=== PATIENT | female | born 1970 | race Caucasian/White ===

== ENCOUNTER 2016-08-27 16:51 | Emergency (ER) | payer BC ==
[~2016-08-27] VITALS: Ht 152.4 cm; Wt 106.1 kg
--- NOTE | ~2016-08-27 | EKG ---
[place], [place] ELECTROCARDIOGRAM REPORT NAME: KRISTAL VAN UNIT #: [id number] ROOM: DOCTOR: YANNI ORNELAS MD BIRTHDATE: [birth year] DOS: 08/27/2016 TIME: 1707 hours. Normal sinus rhythm at 72 beats per minute. The tracing is normal. No previous tracing is available for comparison. YANNI ORNELAS MD CM:EKGRPT:ELECTROCARDIOGRAM REPORT [id number] YANNI ORNELAS MD
[~2016-08-27 16:51] MED LIST: ACETAMINOPHEN-H1 TA2 PO; ACYCLOVIR800 MG PO; ALLEGRA180 MG PO; ASPIRIN81 M1 PO; ATORVASTATIN CA20 M1 PO; ATORVASTATIN CA40 M1 PO; AUGMENTIN 875 M1 TAB PO; COZAAR50 M1 PO; FLAGYL500 MG PO; HYDROCHLOROTHIA25 M1 PO; LISINOPRIL10 MG PO; LOSARTAN POTASS25 M1 PO; MELOXICAM7.5 MG PO; MIDRIN 325 MG-11 CA1 PO; MOTRIN800 MG PO; NORCO 10-325 T1 EACH PO; PREDNISONE20 M1 PO; TIZANIDINE HCL4 MG PO; VICODIN 500 MG-1 TAB PO; ZOLPIDEM TART10 MG PO
[2016-08-27 17:24] LABS: BASO # 0.1 10*3/uL (0.0-0.1); BASO % 0.7 % (0.0-1.0); EOS # 0.1 10*3/uL (0.0-0.4); HEMATOCRIT 43.5 % (37.0-47.0); HEMOGLOBIN 15.5 g/dl (12.0-16.0); IG # 0.1 10*3/uL (0.0-0.1); LYMPH # 2.3 10*3/uL (1.3-4.4); LYMPH % 23.3 % (27.0-41.0); MEAN CELL VOLUME 82.9 fl (81.0-99.0); MEAN CORPUSCULAR HGB 29.5 pg (27.0-31.0); MEAN CORPUSCULAR HGB CONC 35.6 g/dl (33.0-37.0); MEAN PLATELET VOLUME 10.1 fl (9.6-12.3); MONO # 0.6 10*3/uL (0.1-1.0); MONO % 6.4 % (3.0-9.0); NEUT # 6.8 10*3/uL (2.3-7.9); NEUT % 68.1 % (47.0-73.0); PLATELET COUNT AUTOMATED 282 10*3/uL (130-400); RED BLOOD COUNT 5.25 10*6/uL (4.10-5.10); RED CELL DISTRI WIDTH 12.7 % (0-14.5)
[2016-08-27 17:35] LABS: PROTHROMBIN TIME 10.4 SECONDS (9.0-12.4)
[2016-08-27 17:53] LABS: ALKALINE PHOSPHATASE 100 U/L (45-117); BILIRUBIN, TOTAL 0.5 mg/dl (0.2-1.0); BUN 10 mg/dl (7-24); CARBON DIOXIDE 25 mmol/L (21-32); CHLORIDE 95 mmol/L (98-107); CPK 117 U/L (26-192); EST GLOM FILT AFRICAN AMERICAN > 60 ml/min; GLUCOSE 336 mg/dL (65-99); MAGNESIUM 1.9 mg/dL (1.5-2.1); POTASSIUM 3.1 mmol/L (3.5-5.1); SGOT/AST 24 IU/L (3-35); SGPT/ALT 33 U/L (12-78); SODIUM 137 mmol/L (136-145); TOTAL PROTEIN 7.3 gm/dL (6.4-8.2)
[2016-08-27 18:00] LABS: CKMB < 0.5 ng/ml (0.5-3.6); TROPONIN I < 0.015 ng/ml (<0.045)
== END 2016-08-27 18:23 | disposition home or self-care (01) ==
LOC: ED 16:51
PROVIDERS: Registered Nurse
DX: J09.X2 Influenza due to identified novel influenza A virus with other respiratory manifestations (principal); F17.200 Nicotine dependence, unspecified, uncomplicated; Z98.890 Other specified postprocedural states; Z90.49 Acquired absence of other specified parts of digestive tract; Z79.82 Long term (current) use of aspirin; Z79.899 Other long term (current) drug therapy; Z88.2 Allergy status to sulfonamides

== ENCOUNTER 2016-09-05 15:26 | Emergency (ER) | payer BC ==
[~2016-09-05] VITALS: Ht 152.4 cm; Wt 104.3 kg
[2016-09-05 16:03] LABS: BASO # 0.1 10*3/uL (0.0-0.1); BASO % 0.9 % (0.0-1.0); EOS # 0.2 10*3/uL (0.0-0.4); EOS % 2.4 % (1.0-4.0); HEMATOCRIT 42.4 % (37.0-47.0); HEMOGLOBIN 14.8 g/dl (12.0-16.0); LYMPH # 2.1 10*3/uL (1.3-4.4); LYMPH % 25.5 % (27.0-41.0); MEAN CELL VOLUME 84.5 fl (81.0-99.0); MEAN CORPUSCULAR HGB 29.5 pg (27.0-31.0); MEAN CORPUSCULAR HGB CONC 34.9 g/dl (33.0-37.0); MEAN PLATELET VOLUME 10.5 fl (9.6-12.3); MONO # 0.5 10*3/uL (0.1-1.0); MONO % 6.2 % (3.0-9.0); NEUT # 5.3 10*3/uL (2.3-7.9); NEUT % 64.5 % (47.0-73.0); PLATELET COUNT AUTOMATED 221 10*3/uL (130-400); RED BLOOD COUNT 5.02 10*6/uL (4.10-5.10); RED CELL DISTRI WIDTH 12.6 % (0-14.5); WHITE BLOOD COUNT 8.2 10*3/uL (4.8-10.8)
[2016-09-05 16:24] LABS: ALBUMIN 3.7 gm/dl (3.1-4.5); ALKALINE PHOSPHATASE 108 U/L (45-117); BILIRUBIN, TOTAL 0.5 mg/dl (0.2-1.0); BUN 10 mg/dl (7-24); CARBON DIOXIDE 28 mmol/L (21-32); CHLORIDE 97 mmol/L (98-107); EST GLOM FILT AFRICAN AMERICAN > 60 ml/min; GLUCOSE 436 mg/dL (65-99); POTASSIUM 3.7 mmol/L (3.5-5.1); SGOT/AST 19 IU/L (3-35); SGPT/ALT 29 U/L (12-78); SODIUM 135 mmol/L (136-145); TOTAL PROTEIN 6.7 gm/dL (6.4-8.2)
[2016-09-05 16:52] LABS: BILIRUBIN NEGATIVE (NEGATIVE); BLOOD TRACE-LYSED (NEGATIVE); CLARITY CLEAR (CLEAR); COLOR YELLOW (YELLOW); GLUCOSE 3+ (NEGATIVE); KETONE NEGATIVE (NEGATIVE); LEUKO ESTERASE NEGATIVE (NEGATIVE); NITRITE NEGATIVE (NEGATIVE); PH 6.5 (5.0-9.0); PROTEIN NEGATIVE (NEGATIVE); SPECIFIC GRAVITY <= 1.005 (1.005-1.030); UROBILINOGEN 0.2 E.U./dl (0.2-1.0)
[2016-09-05 17:20] LABS: BACTERIA 1+; URINE REFLEX COMMENT NO (NO); WBC 0-2 wbc/hpf (0-5)
[2016-09-05] MEDS ORDERED: METFORMIN500 MG PO (17:45)
== END 2016-09-05 17:47 | disposition home or self-care (01) ==
LOC: ED 15:26
PROVIDERS: Registered Nurse
DX: E11.9 Type 2 diabetes mellitus without complications (principal); F17.200 Nicotine dependence, unspecified, uncomplicated; Z88.2 Allergy status to sulfonamides; Z79.899 Other long term (current) drug therapy; Z79.82 Long term (current) use of aspirin

== ENCOUNTER → 2016-11-18 | Outpatient (CLI) | payer BC ==
[~2016-11-18] MED LIST changes: +METFORMIN500 MG PO
== END | disposition home or self-care (01) ==
LOC: CT 11-13 15:00
DX: N28.1 Cyst of kidney, acquired (principal); K57.30 Diverticulosis of large intestine without perforation or abscess without bleeding; I10 Essential (primary) hypertension

== ENCOUNTER 2017-04-29 13:21 | Emergency (ER) | payer BC ==
[~2017-04-29] VITALS: Ht 152.4 cm; Wt 113.4 kg
[2017-04-29] MEDS ORDERED: TRAMADOL HCL50 MG PO (15:39)
[2017-04-29] MEDS ORDERED: NAPROSYN500 MG PO (15:39)
== END 2017-04-29 15:59 | disposition home or self-care (01) ==
LOC: ED 13:21
DX: M25.562 Pain in left knee (principal); F17.200 Nicotine dependence, unspecified, uncomplicated; Z90.49 Acquired absence of other specified parts of digestive tract; Z98.890 Other specified postprocedural states; Z79.82 Long term (current) use of aspirin; Z79.899 Other long term (current) drug therapy; Z88.2 Allergy status to sulfonamides

== ENCOUNTER 2017-08-06 18:06 | Inpatient (IN) | payer BC ==
[~2017-08-06] VITALS: Ht 152.4 cm; Wt 116.2 kg
[2017-08-06] VITALS (7 sets, daily range): BP systolic 126–162; BP diastolic 56–78
[~2017-08-06 18:06] MED LIST changes: +NAPROSYN500 MG PO; +TRAMADOL HCL50 MG PO
[2017-08-06 18:22] LABS: BASO # 0.1 10*3/uL (0.0-0.1); BASO % 0.7 % (0.0-1.0); EOS # 0.1 10*3/uL (0.0-0.4); HEMATOCRIT 41.2 % (37.0-47.0); HEMOGLOBIN 13.7 g/dl (12.0-16.0); LYMPH # 2.6 10*3/uL (1.3-4.4); LYMPH % 28.4 % (27.0-41.0); MEAN CELL VOLUME 85.7 fl (81.0-99.0); MEAN CORPUSCULAR HGB 28.5 pg (27.0-31.0); MEAN CORPUSCULAR HGB CONC 33.3 g/dl (33.0-37.0); MEAN PLATELET VOLUME 10.2 fl (9.6-12.3); MONO # 0.7 10*3/uL (0.1-1.0); MONO % 7.3 % (3.0-9.0); NEUT # 5.7 10*3/uL (2.3-7.9); NEUT % 62.3 % (47.0-73.0); PLATELET COUNT AUTOMATED 288 10*3/uL (130-400); RED BLOOD COUNT 4.81 10*6/uL (4.10-5.10); RED CELL DISTRI WIDTH 13.2 % (0-14.5); WHITE BLOOD COUNT 9.1 10*3/uL (4.8-10.8)
[2017-08-06 18:32] LABS: ACT PARTIAL THROMBO TIME 22.4 SECONDS (20.8-31.5)
[2017-08-06 18:39] LABS: ALBUMIN 3.8 gm/dl (3.1-4.5); ALKALINE PHOSPHATASE 57 U/L (45-117); BUN 20 mg/dl (7-24); CHLORIDE 102 mmol/L (98-107); CREATININE 1.14 mg/dL (0.55-1.02); POTASSIUM 3.5 mmol/L (3.5-5.1); SGOT/AST 16 IU/L (3-35); SGPT/ALT 20 U/L (12-78); SODIUM 139 mmol/L (136-145); TOTAL PROTEIN 7.2 gm/dL (6.4-8.2)
[2017-08-06 18:40] LABS: TROPONIN I < 0.015 ng/ml (<0.045)
[2017-08-06] MEDS ORDERED: NEURONTIN600 MG PO (21:32)
[2017-08-06] MEDS ORDERED: VITAMIN D-32000 UNIT PO (21:33)
[2017-08-06] MEDS ORDERED: NOVOLOG MI100 UNIT/2 SQ ×2 (21:34→21:35)
[2017-08-06] MEDS ORDERED: FENOFIBRATE160 MG PO (21:53)
[2017-08-07 00:52] VITALS: BP 128/53
[2017-08-07] MEDS ORDERED: LIPITOR80 MG PO (01:16)
[2017-08-07 06:25] LABS: BASO # 0.1 10*3/uL (0.0-0.1); BASO % 0.9 % (0.0-1.0); EOS # 0.1 10*3/uL (0.0-0.4); EOS % 1.6 % (1.0-4.0); HEMATOCRIT 38.7 % (37.0-47.0); HEMOGLOBIN 13.1 g/dl (12.0-16.0); LYMPH # 2.3 10*3/uL (1.3-4.4); LYMPH % 31.6 % (27.0-41.0); MEAN CELL VOLUME 85.6 fl (81.0-99.0); MEAN CORPUSCULAR HGB CONC 33.9 g/dl (33.0-37.0); MEAN PLATELET VOLUME 10.2 fl (9.6-12.3); MONO # 0.6 10*3/uL (0.1-1.0); NEUT # 4.3 10*3/uL (2.3-7.9); NEUT % 57.6 % (47.0-73.0); PLATELET COUNT AUTOMATED 269 10*3/uL (130-400); RED BLOOD COUNT 4.52 10*6/uL (4.10-5.10); RED CELL DISTRI WIDTH 13.4 % (0-14.5); WHITE BLOOD COUNT 7.4 10*3/uL (4.8-10.8)
[2017-08-07 06:48] LABS: ALBUMIN 3.4 gm/dl (3.1-4.5); BUN 18 mg/dl (7-24); CHLORIDE 106 mmol/L (98-107); CHOLESTEROL 121 mg/dL (<200); CREATININE 1.05 mg/dL (0.55-1.02); PHOSPHOROUS 4.1 mg/dL (2.5-4.9); POTASSIUM 3.5 mmol/L (3.5-5.1); SGOT/AST 16 IU/L (3-35); SGPT/ALT 23 U/L (12-78); SODIUM 141 mmol/L (136-145); TOTAL PROTEIN 6.4 gm/dL (6.4-8.2); TRIGLYCERIDES 348 mg/dl (<150); VLDL CHOLESTEROL 70 mg/dL (6-40)
[2017-08-07 06:56] LABS: ALKALINE PHOSPHATASE 60 U/L (45-117); HDL CHOLESTEROL 20 mg/dl (40-60); LDL CHOLESTEROL 31 mg/dL (9-159)
[2017-08-07 08:00] VITALS: BP 123/63
[2017-08-07 08:10] LABS: VITAMIN D, 25-HYDROXY 27.5 ng/mL (30-100)
[2017-08-07 12:00] VITALS: BP 126/69
[2017-08-07] MEDS ORDERED: B12,B-12,B 12500 MC1 PO (13:16)
[2017-08-07] MEDS ORDERED: LOPRESSOR25 MG PO ×2 (15:14→15:46)
== END 2017-08-07 15:55 | disposition home or self-care (01) | DRG 313 ==
LOC: ED 18:06 → 4E 20:06 → EDHOLD 20:06 → 4E 20:25
PROVIDERS: Emergency Medicine; Internal Medicine
PROC: 4A02XM4 Measurement of Cardiac Total Activity, External Approach (ICD-10-PCS; principal; 2017-08-07)
PROC: 3E073KZ Introduction of Other Diagnostic Substance into Coronary Artery, Percutaneous Approach (ICD-10-PCS; principal; 2017-08-07)
DX: R07.9 Chest pain, unspecified (principal); N17.0 Acute kidney failure with tubular necrosis; Z68.43 Body mass index [BMI] 50.0-59.9, adult; E11.649 Type 2 diabetes mellitus with hypoglycemia without coma; E83.41 Hypermagnesemia; E66.01 Morbid (severe) obesity due to excess calories; E78.5 Hyperlipidemia, unspecified; F17.210 Nicotine dependence, cigarettes, uncomplicated; J45.909 Unspecified asthma, uncomplicated; I10 Essential (primary) hypertension; M19.90 Unspecified osteoarthritis, unspecified site; Z79.4 Long term (current) use of insulin; Z88.2 Allergy status to sulfonamides; Z79.899 Other long term (current) drug therapy; Z90.49 Acquired absence of other specified parts of digestive tract; Z82.49 Family history of ischemic heart disease and other diseases of the circulatory system; Z83.3 Family history of diabetes mellitus; Z82.3 Family history of stroke

== ENCOUNTER → 2017-08-27 | Outpatient (CLI) | payer BC ==
[~2017-08-27] MED LIST changes: +B12,B-12,B 12500 MC1 PO; +FENOFIBRATE160 MG PO; +LIPITOR80 MG PO; +LOPRESSOR25 MG PO; +NEURONTIN600 MG PO; +NOVOLOG MI100 UNIT/2 SQ; +VITAMIN D-32000 UNIT PO
[2017-08-27 16:53] LABS: HEMATOCRIT 40.6 % (37.0-47.0); HEMOGLOBIN 13.9 g/dl (12.0-16.0); MEAN CELL VOLUME 84.1 fl (81.0-99.0); MEAN CORPUSCULAR HGB 28.8 pg (27.0-31.0); MEAN CORPUSCULAR HGB CONC 34.2 g/dl (33.0-37.0); MEAN PLATELET VOLUME 10.3 fl (9.6-12.3); PLATELET COUNT AUTOMATED 357 10*3/uL (130-400); RED BLOOD COUNT 4.83 10*6/uL (4.10-5.10); RED CELL DISTRI WIDTH 13.1 % (0-14.5); WHITE BLOOD COUNT 20.5 10*3/uL (4.8-10.8)
[2017-08-27 17:06] LABS: CREATININE 1.32 mg/dL (0.55-1.02)
[2017-08-27 17:17] LABS: PLATELET SUFFICIENCY NORMAL (NORMAL); TOTAL CELLS COUNTED 100 #CELLS
== END | disposition home or self-care (01) ==
LOC: LAB 16:36
PROVIDERS: Internal Medicine Cardiovascular Disease
DX: R07.2 Precordial pain (principal); R94.39 Abnormal result of other cardiovascular function study; R89.9 Unspecified abnormal finding in specimens from other organs, systems and tissues

== ENCOUNTER → 2020-02-07 | Outpatient (CLI) | payer BC | END | disposition home or self-care (01) | LOC: MAMMO 12:32 | PROVIDERS: ATTEND Nurse Practitioner Primary Care | DX: R92.2 Inconclusive mammogram (principal); N63.11 Unspecified lump in the right breast, upper outer quadrant; N63.20 Unspecified lump in the left breast, unspecified quadrant; Z87.898 Personal history of other specified conditions ==

== ENCOUNTER → 2020-03-08 | Outpatient (CLI) | payer BC ==
[~2020-03-08] MED LIST changes: +AUGMENTIN 875875 MG PO; +BUDESONIDE-FO10.2 G1 INH; +GEMFIBROZIL600 MG PO; +NAPROXEN500 MG PO; +OZEMPIC1 MG/0.75 SQ; +PANTOPRAZOLE SO40 MG PO; +PROVENTIL HFA6.7 GM INH; +VENTOLIN 02.5 MG/3 M INH
== END | disposition home or self-care (01) ==
LOC: COVID19 04:56
PROVIDERS: ATTEND Nurse Practitioner Primary Care
DX: R31.9 Hematuria, unspecified (principal); R43.2 Parageusia; R11.0 Nausea; Z90.49 Acquired absence of other specified parts of digestive tract; Z20.828 Contact with and (suspected) exposure to other viral communicable diseases

== ENCOUNTER → 2020-04-06 | Outpatient (CLI) | payer BC | END | disposition home or self-care (01) | LOC: COVID19 08:54 | PROVIDERS: ATTEND Nurse Practitioner Primary Care | DX: Z20.828 Contact with and (suspected) exposure to other viral communicable diseases (principal) ==

== ENCOUNTER 2020-04-28 09:08 | Inpatient (IN) | payer BC ==
[~2020-04-28] VITALS: Ht 152.4 cm; Wt 102.7 kg
[~2020-04-28 09:08] MED LIST changes: -AUGMENTIN 875875 MG PO; -BUDESONIDE-FO10.2 G1 INH; -GEMFIBROZIL600 MG PO; -NAPROXEN500 MG PO; -OZEMPIC1 MG/0.75 SQ; -PANTOPRAZOLE SO40 MG PO; -PROVENTIL HFA6.7 GM INH; -VENTOLIN 02.5 MG/3 M INH
[2020-04-28 09:17] VITALS: BP 126/90
[2020-04-28 09:55] LABS: BASO # 0.1 10*3/uL (0.0-0.1); BASO % 0.5 % (0.0-1.0); EOS # 0.1 10*3/uL (0.0-0.4); EOS % 0.7 % (1.0-4.0); HEMATOCRIT 42.4 % (37.0-47.0); LYMPH # 1.5 10*3/uL (1.3-4.4); LYMPH % 11.3 % (27.0-41.0); MEAN CELL VOLUME 84.3 fl (81.0-99.0); MEAN CORPUSCULAR HGB 28.4 pg (27.0-31.0); MEAN CORPUSCULAR HGB CONC 33.7 g/dl (33.0-37.0); MEAN PLATELET VOLUME 10.1 fl (9.6-12.3); MONO # 0.8 10*3/uL (0.1-1.0); NEUT # 10.8 10*3/uL (2.3-7.9); NEUT % 80.9 % (47.0-73.0); PLATELET COUNT AUTOMATED 354 10*3/uL (130-400); RED BLOOD COUNT 5.03 10*6/uL (4.10-5.10); RED CELL DISTRI WIDTH 12.5 % (0-14.5); WHITE BLOOD COUNT 13.4 10*3/uL (4.8-10.8)
[2020-04-28 10:09] LABS: ALBUMIN 3.9 gm/dl (3.1-4.5); ALKALINE PHOSPHATASE 91 U/L (45-117); BUN 13 mg/dl (7-24); CHLORIDE 101 mmol/L (98-107); CREATININE 0.99 mg/dL (0.55-1.02); LIPASE 153 U/L (73-393); POTASSIUM 3.2 mmol/L (3.5-5.1); SGOT/AST 11 IU/L (3-35); SGPT/ALT 22 U/L (12-78); SODIUM 137 mmol/L (136-145); TOTAL PROTEIN 7.9 gm/dL (6.4-8.2)
--- NOTE | 2020-04-28 10:13 | NUR ---
PT IS RESTING IN BED W/O DISTRESS. NAUSEA HAS IMPROVED. PT HAS IS W/O NEEDS AT THIS TIME.
[2020-04-28 10:36] LABS: BILIRUBIN Negative (Negative); BLOOD Negative (Negative); CLARITY Clear (Clear); COLOR Yellow (Yellow); GLUCOSE Negative (Negative); KETONE Trace (Negative); LEUKO ESTERASE Trace (Negative); NITRITE Negative (Negative); PH 5.5 (4.5-8.0); SPECIFIC GRAVITY 1.025 (1.001-1.030)
[2020-04-28 10:55] LABS: BACTERIA 1+; HYALINE CAST 21-30
[2020-04-28 11:38] VITALS: BP 108/52
--- NOTE | 2020-04-28 11:42 | NUR ---
PT STATES "PAIN IS MUCH BETTER AFTER MEDS GIVEN" PT IS RESTING IN BED WITH SAFTEY PRECAUTIONS IN PLACE.
[2020-04-28 13:36] VITALS: BP 98/55
[2020-04-28 13:59] VITALS: BP 108/72
--- NOTE | 2020-04-28 15:04 | NUR ---
MSATime: 1359 A 49 year old FEMALE admitted to 5E under services of FREDDY GARZA DO. Pt. arrived via stretcher from ER. Chief complaint: ABDOMINAL PAIN/TENDERNESS, UTI SYMPTOMS. ALPHONSE COLLINS
[2020-04-28] MEDS ORDERED: OZEMPIC1 MG/0.75 SQ (15:10)
[2020-04-28] MEDS ORDERED: GEMFIBROZIL600 MG PO (15:11)
[2020-04-28] MEDS ORDERED: NAPROXEN500 MG PO (15:12)
[2020-04-28] MEDS ORDERED: PANTOPRAZOLE SO40 MG PO (15:15)
[2020-04-28] MEDS ORDERED: BUDESONIDE-FO10.2 G1 INH (15:22)
--- NOTE | 2020-04-28 15:26 | NUR ---
Requested and medicated with morphine iv per prn order for complaints of abdominal pain.
[2020-04-28 16:00] VITALS: BP 116/62
[2020-04-28] MEDS ORDERED: VENTOLIN 02.5 MG/3 M INH (16:23)
[2020-04-28] MEDS ORDERED: PROVENTIL HFA6.7 GM INH (16:24)
--- NOTE | 2020-04-28 16:26 | NUR ---
PRN IV MORPHINE EFFECTIVE, PER PATIENT; PAIN LEVEL HAS DECREASED TO A NOT-AWFUL LEVEL BUT IS STILL THERE, PER PATIENT. MEDICATED AT THIS TIME WITH PRN IV ZOFRAN FOR NAUSEA.
--- NOTE | 2020-04-28 17:17 | NUR ---
PRN IV ZOFRAN EFFECTIVE, PER PATIENT.
--- NOTE | 2020-04-28 18:41 | NUR ---
MEDICATED WITH PN PO NORCO FOR C/O ABDOMINAL PAIN.
--- NOTE | 2020-04-28 19:10 | NUR ---
REPORT RECEIVED. PT LYING IN BED. IVF INFUSING WITHOUT DIFFICULTY. CALL LIGHT IN REACH
--- NOTE | 2020-04-28 19:26 | NUR ---
MEDICATED WITH PRN IV MORPHINE FOR LEFT SIDE ABDOMINAL PAIN; PRN PO NORCO WAS MINIMALLY EFFECTIVE, PER PATIENT.
[2020-04-28 20:00] VITALS: BP 104/70
--- NOTE | 2020-04-28 21:00 | NUR ---
PT RESTING AT THIS TIME
--- NOTE | 2020-04-28 23:48 | NUR ---
MORPHINE GIVEN PER ORDER FOR PAIN. ZOFRAN GIVEN PER ORDER FOR NAUSEA. WILL MONITOR
[2020-04-29] VITALS: BP 99/56
--- NOTE | 2020-04-29 00:35 | NUR ---
MORPHINE AND ZOFRAN APPEAR EFFECTIVE, PT SLEEPING
[2020-04-29 04:27] VITALS: BP 104/62
--- NOTE | 2020-04-29 04:28 | NUR ---
MORPHINE GIVEN PER ORDER FOR 10/10 ABD PAIN.
--- NOTE | 2020-04-29 05:25 | NUR ---
MORPHINE APPEARS EFFECTIVE, PT ASLEEP
[2020-04-29 07:25] LABS: BASO # 0.1 10*3/uL (0.0-0.1); BASO % 0.4 % (0.0-1.0); EOS % 0.3 % (1.0-4.0); HEMATOCRIT 36.5 % (37.0-47.0); LYMPH # 1.2 10*3/uL (1.3-4.4); LYMPH % 8.3 % (27.0-41.0); MEAN CELL VOLUME 85.9 fl (81.0-99.0); MEAN CORPUSCULAR HGB 28.7 pg (27.0-31.0); MEAN CORPUSCULAR HGB CONC 33.4 g/dl (33.0-37.0); MEAN PLATELET VOLUME 10.3 fl (9.6-12.3); MONO # 0.7 10*3/uL (0.1-1.0); MONO % 4.6 % (3.0-9.0); NEUT # 12.3 10*3/uL (2.3-7.9); PLATELET COUNT AUTOMATED 269 10*3/uL (130-400); RED BLOOD COUNT 4.25 10*6/uL (4.10-5.10); RED CELL DISTRI WIDTH 12.9 % (0-14.5); WHITE BLOOD COUNT 14.3 10*3/uL (4.8-10.8)
[2020-04-29 07:34] LABS: BUN 11 mg/dl (7-24); CHLORIDE 109 mmol/L (98-107); CHOLESTEROL 101 mg/dL (<200); CREATININE 0.73 mg/dL (0.55-1.02); HDL CHOLESTEROL 28 mg/dl (40-60); LDL CHOLESTEROL 45 mg/dL (9-159); POTASSIUM 3.2 mmol/L (3.5-5.1); SODIUM 140 mmol/L (136-145); TRIGLYCERIDES 140 mg/dl (<150); VLDL CHOLESTEROL 28 mg/dL (6-40)
[2020-04-29 08:00] VITALS: BP 99/57
--- NOTE | 2020-04-29 09:56 | NUR ---
MEDICATED WITH PRN IV ZOFRAN AND MORPHINE FOR NAUSEA AND ABDOMINAL PAIN.
--- NOTE | 2020-04-29 10:45 | NUR ---
PRN IV MORPHINE AND ZOFRAN NOT VERY EFFECTIVE, PER PATIENT.
[2020-04-29 12:00] VITALS: BP 113/68
--- NOTE | 2020-04-29 12:45 | NUR ---
IV SITE TO LEFT ARM REDDENED/PAINFUL/EDEMATOUS. DISCONTINUED IV SITE AND APPLIED ICE PACK FOR PAIN. IV RESTARTED TO RIGHT ARM.
[2020-04-29 16:00] VITALS: BP 108/63
--- NOTE | 2020-04-29 16:13 | NUR ---
MEDICATED WITH PRN IV MORPHINE AND ZOFRAN FOR ABDOMINAL PAIN AND NAUSEA.
--- NOTE | 2020-04-29 17:00 | NUR ---
PRN IV ZOFRAN AND MORPHINE SOMEWHAT EFFECTIVE, PER PATIENT.
--- NOTE | 2020-04-29 19:10 | NUR ---
REPORT RECEIVED. PT LYING IN BED TALKING ON PHONE. NO COMPLAINTS. CALL LIGHT IN REACH
[2020-04-29 20:00] VITALS: BP 114/62
--- NOTE | 2020-04-29 20:23 | NUR ---
MORPHINE GIVEN PER ORDER FOR COMPLAINTS OF 10/10 LLQ PAIN. WILL MONITOR EFFECTIVENESS
--- NOTE | 2020-04-29 21:20 | NUR ---
MORPHINE APPEARS EFFECTIVE, PT LYING IN BED WITH EYES CLOSED. CALL LIGHT IN REACH
[2020-04-30] VITALS: BP 108/59
--- NOTE | 2020-04-30 01:26 | NUR ---
MORPHINE GIVEN PER ORDER FOR COMPLAINTS OF PAIN. ZOFRAN GIVEN PER ORDER FOR COMPLAINTS OF NAUSEA
--- NOTE | 2020-04-30 02:20 | NUR ---
MORPHINE AND ZOFRAN APPEAR EFFECTIVE, PT ASLEEP AT THIS TIME
--- NOTE | 2020-04-30 03:56 | NUR ---
24 HR chart check completed.
--- NOTE | 2020-04-30 04:00 | NUR ---
PT SLEEPING AT THIS TIME
--- NOTE | 2020-04-30 06:01 | NUR ---
MORPHINE GIVEN PER ORDER FOR ABDOMINAL PAIN. WILL MONITOR
--- NOTE | 2020-04-30 07:00 | NUR ---
MORPHINE EFFECTIVE PER PT
[2020-04-30 07:05] LABS: BASO % 0.4 % (0.0-1.0); EOS % 0.4 % (1.0-4.0); HEMATOCRIT 34.4 % (37.0-47.0); LYMPH # 0.9 10*3/uL (1.3-4.4); LYMPH % 8.5 % (27.0-41.0); MEAN CELL VOLUME 85.6 fl (81.0-99.0); MEAN CORPUSCULAR HGB 28.1 pg (27.0-31.0); MEAN CORPUSCULAR HGB CONC 32.8 g/dl (33.0-37.0); MEAN PLATELET VOLUME 10.2 fl (9.6-12.3); MONO # 0.5 10*3/uL (0.1-1.0); MONO % 4.5 % (3.0-9.0); NEUT # 9.5 10*3/uL (2.3-7.9); NEUT % 85.4 % (47.0-73.0); PLATELET COUNT AUTOMATED 273 10*3/uL (130-400); RED BLOOD COUNT 4.02 10*6/uL (4.10-5.10); RED CELL DISTRI WIDTH 12.7 % (0-14.5); WHITE BLOOD COUNT 11.1 10*3/uL (4.8-10.8)
[2020-04-30 07:28] LABS: BUN 10 mg/dl (7-24); CHLORIDE 106 mmol/L (98-107); CREATININE 0.76 mg/dL (0.55-1.02); POTASSIUM 3.1 mmol/L (3.5-5.1); SODIUM 139 mmol/L (136-145)
[2020-04-30 08:00] VITALS: BP 122/80
--- NOTE | 2020-04-30 08:20 | NUR ---
MEDICATED WITH PRN IV ZOFRAN FOR NAUSEA.
--- NOTE | 2020-04-30 08:30 | NUR ---
Survey Research Professor in to talk to patient this morning in her Room. Patient states that she Lives at Home with her . There are 7 steps in the home. Physician: Filemon Monique Pharmacy: [facility] Home health services: None Patient's level of ADLs: Independent, still works and Drives Patient has working utilities: Yes DME: None Follow-up physician's appointment after d/c: Per Hospitalist Nurse Director Does patient want to access PORTAL?: Declines Discharge plan discussed with Pt. At this time, Pt. plans on Returning Home at discharge with No Home Needs. MARIA ELENA KRAUSE LPN
--- NOTE | 2020-04-30 08:35 | NUR ---
MEDICATED WITH PRN PO NORCO FOR LEFT SIDE ABDOMINAL PAIN.
--- NOTE | 2020-04-30 09:20 | NUR ---
PRN NORCO AND ZOFRAN SOMEWHAT EFFECTIVE, PER PATIENT.
[2020-04-30 12:00] VITALS: BP 122/60
--- NOTE | 2020-04-30 14:44 | NUR ---
MEDICATED WITH PRN IV ZOFRAN AND MORPHINE FOR NAUSEA AND LEFT SIDE ABDOMINAL PAIN.
--- NOTE | 2020-04-30 15:30 | NUR ---
PRN IV ZOFRAN AND MORPHINE EFFECTIVE, PER PATIENT.
[2020-04-30 16:00] VITALS: BP 110/51
--- NOTE | 2020-04-30 16:22 | NUR ---
IV SITE TO RIGHT ARM REDDENED AND PAINFUL, IV SITE DISCONTINUED. AFTER MULTIPLE ATTEMPTS AT IV RESTART BY MULTIPLE RN'S, UNABLE TO OBTAIN IV ACCESS. 2ND OF 2 RUNS OF KCL 20MEQ NOT HUNG, PATIENT IS ALSO ORDERED IV ZOSYN. DR. WILSON NOTIFIED OF THIS. OBTAINED ORDER FOR MIDLINE INSERTION, MESSAGE SENT TO OR.
[2020-04-30 20:00] VITALS: BP 125/70
[2020-05-01] VITALS: BP 110/63
--- NOTE | 2020-05-01 05:05 | NUR ---
24 HR chart check completed.
--- NOTE | 2020-05-01 06:13 | NUR ---
PT REQUEST FOR PRN PAIN MEDICATION AND NAUSEA MEDICATION. MEDICATION GIVEN. WILL REASSESS.
[2020-05-01 06:54] LABS: BASO % 0.4 % (0.0-1.0); EOS # 0.1 10*3/uL (0.0-0.4); EOS % 0.5 % (1.0-4.0); HEMATOCRIT 33.6 % (37.0-47.0); LYMPH % 8.6 % (27.0-41.0); MEAN CELL VOLUME 85.3 fl (81.0-99.0); MEAN CORPUSCULAR HGB 28.7 pg (27.0-31.0); MEAN CORPUSCULAR HGB CONC 33.6 g/dl (33.0-37.0); MEAN PLATELET VOLUME 9.6 fl (9.6-12.3); MONO # 0.5 10*3/uL (0.1-1.0); MONO % 4.7 % (3.0-9.0); NEUT # 9.6 10*3/uL (2.3-7.9); NEUT % 84.8 % (47.0-73.0); PLATELET COUNT AUTOMATED 256 10*3/uL (130-400); RED BLOOD COUNT 3.94 10*6/uL (4.10-5.10); RED CELL DISTRI WIDTH 12.6 % (0-14.5); WHITE BLOOD COUNT 11.3 10*3/uL (4.8-10.8)
[2020-05-01 08:00] VITALS: BP 102/58
--- NOTE | 2020-05-01 10:45 | NUR ---
Nutritional Support Services Note: Pt remains on a clear liquid diet. Dx of diverticulitis of colon with perforation, UTI, DM, HTN, severe sepsis and obesity. Will follow for advancement of po intake. Margie Hernandez Rdn Ld
[2020-05-01 11:58] LABS: BUN 10 mg/dl (7-24); CHLORIDE 106 mmol/L (98-107); CREATININE 0.76 mg/dL (0.55-1.02); POTASSIUM 3.3 mmol/L (3.5-5.1); SODIUM 140 mmol/L (136-145)
[2020-05-01 12:00] VITALS: BP 128/70
--- NOTE | 2020-05-01 15:52 | NUR ---
DIET ADVANCED TO SOFT TODAY. IF TOLERATES WILL BE DCD IN AM PATIENT STATES DR. ERVIN TOLD HER.
[2020-05-01 16:00] VITALS: BP 111/56
--- NOTE | 2020-05-01 19:45 | NUR ---
PT SEEN AND ASSESSED. PT DENIES ANY CURRENT C/O AT THIS TIME. WILL CONT TO ASSESS.
[2020-05-01 20:00] VITALS: BP 117/63
[2020-05-01 22:09] VITALS: BP 138/45
--- NOTE | 2020-05-01 23:16 | NUR ---
PT REQUEST PRN PAIN MEDICATION FOR 8/10 PAIN TO LEFT SIDE AND FLANK. WILL REASSESS
[2020-05-02] VITALS: BP 129/68
--- NOTE | 2020-05-02 00:16 | NUR ---
PT RESTING IN BED WITH EYE CLOSED AND APPEARS TO BE ASLEEP AT THIS TIME. WILL CONT TO REASSESS
--- NOTE | 2020-05-02 02:29 | NUR ---
24 HR chart check completed.
[2020-05-02 06:51] LABS: BASO % 0.3 % (0.0-1.0); EOS # 0.1 10*3/uL (0.0-0.4); EOS % 0.5 % (1.0-4.0); HEMATOCRIT 32.5 % (37.0-47.0); LYMPH % 7.8 % (27.0-41.0); MEAN CELL VOLUME 84.4 fl (81.0-99.0); MEAN CORPUSCULAR HGB 28.1 pg (27.0-31.0); MEAN CORPUSCULAR HGB CONC 33.2 g/dl (33.0-37.0); MEAN PLATELET VOLUME 9.6 fl (9.6-12.3); MONO # 0.7 10*3/uL (0.1-1.0); MONO % 5.3 % (3.0-9.0); NEUT # 10.4 10*3/uL (2.3-7.9); NEUT % 85.4 % (47.0-73.0); PLATELET COUNT AUTOMATED 295 10*3/uL (130-400); RED BLOOD COUNT 3.85 10*6/uL (4.10-5.10); RED CELL DISTRI WIDTH 12.6 % (0-14.5); WHITE BLOOD COUNT 12.2 10*3/uL (4.8-10.8)
--- NOTE | 2020-05-02 07:00 | NUR ---
REPORT RECEIVED. PT LYING IN BED. NO COMPLAINTS. CALL LIGHT IN REACH
[2020-05-02 07:04] LABS: BUN 7 mg/dl (7-24); CHLORIDE 106 mmol/L (98-107); CREATININE 0.73 mg/dL (0.55-1.02); POTASSIUM 3.2 mmol/L (3.5-5.1); SODIUM 140 mmol/L (136-145)
[2020-05-02 08:00] VITALS: BP 99/58
--- NOTE | 2020-05-02 09:00 | NUR ---
IN TO SEE PT. NO COMPLAINTS. MEDICATIONS GIVEN. CALL LIGHT IN REACH
--- NOTE | 2020-05-02 12:00 | NUR ---
IN TO SEE PATIENT. VOICES NO COMPLAIINTS. CALL LIGHT IN REACH
[2020-05-02] MEDS ORDERED: AUGMENTIN 875875 MG PO (13:55)
--- NOTE | 2020-05-02 14:33 | NUR ---
Discharge instructions reviewed with patient/family. Patient receptive and verbalizes understanding. Follow-up care arranged. Written instructions given to patient/family. BARBER HOGAN
== END 2020-05-02 14:33 | disposition home or self-care (01) | DRG 872 ==
LOC: ED 09:08 → 5E 13:08 → EDHOLD 13:08 → 5E 13:30
PROVIDERS: Internal Medicine; Physician Assistant; Student in an Organized Health Care Education/Training Program; ADMIT Family Medicine; ATTEND Family Medicine
DX: A41.9 Sepsis, unspecified organism (principal); K57.20 Diverticulitis of large intestine with perforation and abscess without bleeding; N39.0 Urinary tract infection, site not specified; E87.2 Acidosis; Z68.42 Body mass index [BMI] 45.0-49.9, adult; R65.20 Severe sepsis without septic shock; E11.65 Type 2 diabetes mellitus with hyperglycemia; E66.01 Morbid (severe) obesity due to excess calories; E87.6 Hypokalemia; F17.210 Nicotine dependence, cigarettes, uncomplicated; Z71.6 Tobacco abuse counseling; Z88.2 Allergy status to sulfonamides; Z82.49 Family history of ischemic heart disease and other diseases of the circulatory system; Z83.3 Family history of diabetes mellitus; Z81.1 Family history of alcohol abuse and dependence; Z82.3 Family history of stroke; Z84.1 Family history of disorders of kidney and ureter; Z83.49 Family history of other endocrine, nutritional and metabolic diseases

== ENCOUNTER → 2020-07-02 | Outpatient (CLI) | payer BC ==
[~2020-07-02] MED LIST changes: +AUGMENTIN 875875 MG PO; +BUDESONIDE-FO10.2 G1 INH; +CIPRO500 MG PO; +COZAAR25 M1 PO; +FIBER625 MG PO; +GEMFIBROZIL600 MG PO; +JANUVIA100 MG PO; +LEXAPRO5 M1 PO; +NAPROXEN500 MG PO; +OZEMPIC1 MG/0.75 SQ; +PANTOPRAZOLE SO40 MG PO; +PROVENTIL HFA6.7 GM INH; +STOOL SOFTENER100 M3 PO; +SYMB160 INH; +TRAZODONE50 MG PO; +VENTOLIN 02.5 MG/3 M INH
== END | disposition home or self-care (01) ==
LOC: COVID19 09:12
PROVIDERS: ATTEND Nurse Practitioner
DX: Z01.812 Encounter for preprocedural laboratory examination (principal); Z20.822 Contact with and (suspected) exposure to COVID-19

== ENCOUNTER → 2020-07-05 | Day surgery (SDC) | payer BC ==
[~2020-07-05] VITALS: Ht 152.4 cm; Wt 99.8 kg
[2020-07-05 07:45] VITALS: BP 132/60
[2020-07-05 08:32] VITALS: BP 110/35
[2020-07-05 08:45] VITALS: BP 104/54
[2020-07-05 09:02] VITALS: BP 108/64
== END ==
LOC: SDC 07-03 08:00
PROVIDERS: ATTEND Surgery
DX: R10.32 Left lower quadrant pain (principal); K29.50 Unspecified chronic gastritis without bleeding; K57.30 Diverticulosis of large intestine without perforation or abscess without bleeding; K57.32 Diverticulitis of large intestine without perforation or abscess without bleeding; G25.81 Restless legs syndrome; I10 Essential (primary) hypertension; K21.9 Gastro-esophageal reflux disease without esophagitis; F17.210 Nicotine dependence, cigarettes, uncomplicated; F41.9 Anxiety disorder, unspecified; F32.9 Major depressive disorder, single episode, unspecified; E78.00 Pure hypercholesterolemia, unspecified; M19.90 Unspecified osteoarthritis, unspecified site; J45.909 Unspecified asthma, uncomplicated; Z90.49 Acquired absence of other specified parts of digestive tract; Z98.890 Other specified postprocedural states; Z79.899 Other long term (current) drug therapy

== ENCOUNTER → 2020-07-06 | Outpatient (CLI) | payer BC | END | disposition home or self-care (01) | LOC: RESCLI 01:13 | PROVIDERS: ATTEND Internal Medicine | DX: Z76.89 Persons encountering health services in other specified circumstances (principal); Z11.59 Encounter for screening for other viral diseases; J45.41 Moderate persistent asthma with (acute) exacerbation; R11.0 Nausea; K57.92 Diverticulitis of intestine, part unspecified, without perforation or abscess without bleeding; E11.65 Type 2 diabetes mellitus with hyperglycemia; E78.5 Hyperlipidemia, unspecified; I25.10 Atherosclerotic heart disease of native coronary artery without angina pectoris; E55.9 Vitamin D deficiency, unspecified; K21.00 Gastro-esophageal reflux disease with esophagitis, without bleeding; I10 Essential (primary) hypertension; G47.00 Insomnia, unspecified; G89.29 Other chronic pain; J45.909 Unspecified asthma, uncomplicated; M54.9 Dorsalgia, unspecified; E78.1 Pure hyperglyceridemia; F17.210 Nicotine dependence, cigarettes, uncomplicated; F39 Unspecified mood [affective] disorder; Z79.4 Long term (current) use of insulin; Z79.82 Long term (current) use of aspirin; Z79.899 Other long term (current) drug therapy; Z88.8 Allergy status to other drugs, medicaments and biological substances; Z90.49 Acquired absence of other specified parts of digestive tract; Z98.890 Other specified postprocedural states ==

== ENCOUNTER 2020-08-20 13:44 | Observation (INO) | payer BC ==
[~2020-08-20] VITALS: Ht 152.4 cm; Wt 96.6 kg
[~2020-08-20 13:44] MED LIST changes: -CIPRO500 MG PO; -COZAAR25 M1 PO; -JANUVIA100 MG PO
[2020-08-20 13:52] VITALS: BP 114/57
[2020-08-20 15:32] LABS: BASO # 0.1 10*3/uL (0.0-0.1); BASO % 0.6 % (0.0-1.0); EOS # 0.1 10*3/uL (0.0-0.4); EOS % 0.9 % (1.0-4.0); HEMATOCRIT 36.7 % (37.0-47.0); LYMPH # 2.4 10*3/uL (1.3-4.4); LYMPH % 18.7 % (27.0-41.0); MEAN CELL VOLUME 80.1 fl (81.0-99.0); MEAN CORPUSCULAR HGB 25.8 pg (27.0-31.0); MEAN CORPUSCULAR HGB CONC 32.2 g/dl (33.0-37.0); MEAN PLATELET VOLUME 8.8 fl (9.6-12.3); MONO # 0.7 10*3/uL (0.1-1.0); MONO % 5.7 % (3.0-9.0); NEUT # 9.2 10*3/uL (2.3-7.9); NEUT % 72.7 % (47.0-73.0); PLATELET COUNT AUTOMATED 445 10*3/uL (130-400); RED BLOOD COUNT 4.58 10*6/uL (4.10-5.10); RED CELL DISTRI WIDTH 13.7 % (0-14.5); WHITE BLOOD COUNT 12.6 10*3/uL (4.8-10.8)
[2020-08-20 15:44] LABS: INTERNATIONAL NORM RATIO 1.1 (2.0-3.5)
[2020-08-20 15:50] LABS: ALBUMIN 3.3 gm/dl (3.1-4.5); ALKALINE PHOSPHATASE 117 U/L (45-117); BUN 9 mg/dl (7-24); CHLORIDE 99 mmol/L (98-107); CREATININE 0.95 mg/dL (0.55-1.02); LIPASE 156 U/L (73-393); POTASSIUM 2.6 mmol/L (3.5-5.1); SGOT/AST 6 IU/L (3-35); SGPT/ALT 9 U/L (12-78); SODIUM 135 mmol/L (136-145); TOTAL PROTEIN 8.2 gm/dL (6.4-8.2)
[2020-08-20 15:52] LABS: TROPONIN I < 0.015 ng/ml (<0.045)
[2020-08-20 16:42] LABS: BILIRUBIN Negative (Negative); BLOOD 3+ (Negative); CLARITY Turbid (Clear); COLOR Yellow (Yellow); GLUCOSE Negative (Negative); KETONE Negative (Negative); LEUKO ESTERASE 3+ (Negative); NITRITE Positive (Negative); SPECIFIC GRAVITY 1.015 (1.001-1.030)
[2020-08-20 16:47] LABS: WBC TNTC wbc/hpf (0-5)
[2020-08-20 17:58] VITALS: BP 105/58
[2020-08-20] MEDS ORDERED: JANUVIA100 MG PO (19:57)
[2020-08-20 21:05] VITALS: BP 94/52
[2020-08-20 23:30] VITALS: BP 102/66
[2020-08-21 05:28] VITALS: BP 104/68
[2020-08-21 06:11] LABS: ALBUMIN 2.7 gm/dl (3.1-4.5); BASO # 0.1 10*3/uL (0.0-0.1); BASO % 0.8 % (0.0-1.0); BUN 9 mg/dl (7-24); CHLORIDE 105 mmol/L (98-107); CHOLESTEROL 109 mg/dL (<200); CREATININE 0.85 mg/dL (0.55-1.02); EOS # 0.1 10*3/uL (0.0-0.4); EOS % 1.1 % (1.0-4.0); HEMATOCRIT 35.1 % (37.0-47.0); LYMPH # 2.1 10*3/uL (1.3-4.4); LYMPH % 25.7 % (27.0-41.0); MEAN CELL VOLUME 82.2 fl (81.0-99.0); MEAN CORPUSCULAR HGB 25.5 pg (27.0-31.0); MEAN CORPUSCULAR HGB CONC 31.1 g/dl (33.0-37.0); MONO # 0.6 10*3/uL (0.1-1.0); MONO % 6.7 % (3.0-9.0); NEUT # 5.3 10*3/uL (2.3-7.9); NEUT % 64.6 % (47.0-73.0); PLATELET COUNT AUTOMATED 383 10*3/uL (130-400); RED BLOOD COUNT 4.27 10*6/uL (4.10-5.10); SGOT/AST 5 IU/L (3-35); SGPT/ALT 8 U/L (12-78); SODIUM 141 mmol/L (136-145); TRIGLYCERIDES 218 mg/dl (<150); VLDL CHOLESTEROL 44 mg/dL (6-40); WHITE BLOOD COUNT 8.2 10*3/uL (4.8-10.8)
[2020-08-21 06:14] LABS: ACT PARTIAL THROMBO TIME 25.5 SECONDS (20.0-32.1); INTERNATIONAL NORM RATIO 1.1 (2.0-3.5)
[2020-08-21 06:18] LABS: ALKALINE PHOSPHATASE 93 U/L (45-117); FREE T4 1.05 ng/dl (0.76-1.46); HDL CHOLESTEROL 23 mg/dl (40-60); LDL CHOLESTEROL 42 mg/dL (9-159); TOTAL PROTEIN 6.9 gm/dL (6.4-8.2)
[2020-08-21 07:42] LABS: VITAMIN D, 25-HYDROXY 39.5 ng/mL (30-100)
[2020-08-21 10:12] VITALS: BP 124/47
[2020-08-21 12:00] VITALS: BP 135/64
[2020-08-21 16:00] VITALS: BP 112/61
[2020-08-21 20:36] VITALS: BP 105/50
[2020-08-22] VITALS: BP 103/51
[2020-08-22 06:11] LABS: BUN 10 mg/dl (7-24); CHLORIDE 107 mmol/L (98-107); CREATININE 0.72 mg/dL (0.55-1.02); POTASSIUM 3.8 mmol/L (3.5-5.1); SODIUM 141 mmol/L (136-145)
[2020-08-22 06:23] LABS: BASO % 0.6 % (0.0-1.0); EOS # 0.1 10*3/uL (0.0-0.4); HEMATOCRIT 32.4 % (37.0-47.0); LYMPH # 1.7 10*3/uL (1.3-4.4); LYMPH % 24.2 % (27.0-41.0); MEAN CELL VOLUME 83.3 fl (81.0-99.0); MEAN CORPUSCULAR HGB 25.4 pg (27.0-31.0); MEAN CORPUSCULAR HGB CONC 30.6 g/dl (33.0-37.0); MEAN PLATELET VOLUME 8.9 fl (9.6-12.3); MONO # 0.5 10*3/uL (0.1-1.0); MONO % 6.7 % (3.0-9.0); NEUT # 4.7 10*3/uL (2.3-7.9); NEUT % 66.8 % (47.0-73.0); PLATELET COUNT AUTOMATED 390 10*3/uL (130-400); RED BLOOD COUNT 3.89 10*6/uL (4.10-5.10); RED CELL DISTRI WIDTH 13.9 % (0-14.5)
[2020-08-22 07:30] VITALS: BP 110/65
[2020-08-22] MEDS ORDERED: LOPRESSOR25 MG PO (09:48)
[2020-08-22] MEDS ORDERED: CIPRO500 MG PO ×2 (09:48)
[2020-08-22] MEDS ORDERED: COZAAR25 M1 PO ×2 (09:48)
== END 2020-08-22 11:30 | disposition home or self-care (01) ==
LOC: ED 13:44 → EDHOLD 16:49 → 4E 08-21 09:17
PROVIDERS: Family Medicine; Hospitalist; Physician Assistant; ADMIT Internal Medicine; ATTEND Internal Medicine
DX: R55 Syncope and collapse (principal); E87.6 Hypokalemia; N39.0 Urinary tract infection, site not specified; D64.9 Anemia, unspecified; D72.829 Elevated white blood cell count, unspecified; D47.3 Essential (hemorrhagic) thrombocythemia; E87.1 Hypo-osmolality and hyponatremia; R79.82 Elevated C-reactive protein (CRP); E11.65 Type 2 diabetes mellitus with hyperglycemia; M19.90 Unspecified osteoarthritis, unspecified site; I10 Essential (primary) hypertension; G25.81 Restless legs syndrome; E78.5 Hyperlipidemia, unspecified; J45.909 Unspecified asthma, uncomplicated; F17.210 Nicotine dependence, cigarettes, uncomplicated; Z90.49 Acquired absence of other specified parts of digestive tract; Z88.2 Allergy status to sulfonamides

== ENCOUNTER 2020-09-05 11:40 | Inpatient (IN) | payer BC ==
[~2020-09-05] VITALS: Ht 152.4 cm; Wt 99.8 kg
[~2020-09-05 11:40] MED LIST changes: +CIPRO500 MG PO; +COZAAR25 M1 PO; +JANUVIA100 MG PO
[2020-09-05 11:58] VITALS: BP 154/66
[2020-09-05 12:32] LABS: BILIRUBIN Negative (Negative); BLOOD 1+ (Negative); CLARITY Turbid (Clear); COLOR Yellow (Yellow); GLUCOSE 1+ (Negative); KETONE Trace (Negative); LEUKO ESTERASE 3+ (Negative); NITRITE Negative (Negative); SPECIFIC GRAVITY 1.025 (1.001-1.030)
[2020-09-05 12:49] LABS: EPITHELIAL CELLS 21-30; RBC 21-30 rbc/hpf (0-2); WBC TNTC wbc/hpf (0-5)
[2020-09-05 12:50] LABS: BACTERIA 3+
[2020-09-05 13:00] LABS: BASO % 0.5 % (0.0-1.0); EOS # 0.1 10*3/uL (0.0-0.4); EOS % 0.9 % (1.0-4.0); HEMATOCRIT 31.2 % (37.0-47.0); LYMPH # 1.4 10*3/uL (1.3-4.4); LYMPH % 17.5 % (27.0-41.0); MEAN CELL VOLUME 83.6 fl (81.0-99.0); MEAN CORPUSCULAR HGB 25.7 pg (27.0-31.0); MEAN CORPUSCULAR HGB CONC 30.8 g/dl (33.0-37.0); MEAN PLATELET VOLUME 8.1 fl (9.6-12.3); MONO # 0.5 10*3/uL (0.1-1.0); MONO % 5.8 % (3.0-9.0); NEUT % 74.6 % (47.0-73.0); PLATELET COUNT AUTOMATED 363 10*3/uL (130-400); RED BLOOD COUNT 3.73 10*6/uL (4.10-5.10); RED CELL DISTRI WIDTH 15.2 % (0-14.5); WHITE BLOOD COUNT 8.1 10*3/uL (4.8-10.8)
[2020-09-05 13:09] LABS: INTERNATIONAL NORM RATIO 1.2 (2.0-3.5)
[2020-09-05 13:17] LABS: ALBUMIN 2.7 gm/dl (3.1-4.5); ALKALINE PHOSPHATASE 92 U/L (45-117); BUN 12 mg/dl (7-24); CHLORIDE 108 mmol/L (98-107); CREATININE 0.91 mg/dL (0.55-1.02); LIPASE 98 U/L (73-393); POTASSIUM 3.4 mmol/L (3.5-5.1); SGOT/AST 4 IU/L (3-35); SGPT/ALT 9 U/L (12-78); SODIUM 141 mmol/L (136-145); TOTAL PROTEIN 6.5 gm/dL (6.4-8.2)
[2020-09-05 13:19] LABS: TROPONIN I < 0.015 ng/ml (<0.045)
[2020-09-05 19:50] VITALS: BP 130/56
[2020-09-05 20:30] VITALS: BP 146/63
[2020-09-06] VITALS: BP 128/58
[2020-09-06 06:24] LABS: BASO # 0.1 10*3/uL (0.0-0.1); BASO % 0.8 % (0.0-1.0); EOS # 0.1 10*3/uL (0.0-0.4); EOS % 1.1 % (1.0-4.0); HEMATOCRIT 30.7 % (37.0-47.0); LYMPH # 1.6 10*3/uL (1.3-4.4); LYMPH % 24.9 % (27.0-41.0); MEAN CELL VOLUME 83.4 fl (81.0-99.0); MEAN CORPUSCULAR HGB 25.3 pg (27.0-31.0); MEAN CORPUSCULAR HGB CONC 30.3 g/dl (33.0-37.0); MEAN PLATELET VOLUME 8.3 fl (9.6-12.3); MONO # 0.5 10*3/uL (0.1-1.0); MONO % 7.2 % (3.0-9.0); NEUT # 4.3 10*3/uL (2.3-7.9); NEUT % 65.4 % (47.0-73.0); PLATELET COUNT AUTOMATED 379 10*3/uL (130-400); RED BLOOD COUNT 3.68 10*6/uL (4.10-5.10); RED CELL DISTRI WIDTH 15.4 % (0-14.5); WHITE BLOOD COUNT 6.6 10*3/uL (4.8-10.8)
[2020-09-06 06:31] LABS: ALBUMIN 2.7 gm/dl (3.1-4.5); ALKALINE PHOSPHATASE 85 U/L (45-117); BUN 12 mg/dl (7-24); CHLORIDE 110 mmol/L (98-107); CREATININE 0.81 mg/dL (0.55-1.02); POTASSIUM 3.3 mmol/L (3.5-5.1); SGOT/AST 6 IU/L (3-35); SGPT/ALT 9 U/L (12-78); SODIUM 144 mmol/L (136-145); TOTAL PROTEIN 6.7 gm/dL (6.4-8.2)
[2020-09-06 08:00] VITALS: BP 128/68
[2020-09-06 12:00] VITALS: BP 102/72
[2020-09-06 16:00] VITALS: BP 127/66
[2020-09-06 20:00] VITALS: BP 140/51
[2020-09-07] VITALS: BP 151/63
[2020-09-07 06:38] LABS: BASO # 0.1 10*3/uL (0.0-0.1); BASO % 0.8 % (0.0-1.0); EOS # 0.1 10*3/uL (0.0-0.4); EOS % 1.2 % (1.0-4.0); HEMATOCRIT 30.5 % (37.0-47.0); LYMPH # 1.6 10*3/uL (1.3-4.4); LYMPH % 22.2 % (27.0-41.0); MEAN CELL VOLUME 83.1 fl (81.0-99.0); MEAN CORPUSCULAR HGB 25.3 pg (27.0-31.0); MEAN CORPUSCULAR HGB CONC 30.5 g/dl (33.0-37.0); MEAN PLATELET VOLUME 8.4 fl (9.6-12.3); MONO # 0.4 10*3/uL (0.1-1.0); NEUT # 5.1 10*3/uL (2.3-7.9); NEUT % 69.1 % (47.0-73.0); PLATELET COUNT AUTOMATED 385 10*3/uL (130-400); RED BLOOD COUNT 3.67 10*6/uL (4.10-5.10); RED CELL DISTRI WIDTH 15.4 % (0-14.5); WHITE BLOOD COUNT 7.4 10*3/uL (4.8-10.8)
[2020-09-07 06:58] LABS: BUN 14 mg/dl (7-24); CHLORIDE 111 mmol/L (98-107); CREATININE 0.87 mg/dL (0.55-1.02); POTASSIUM 3.4 mmol/L (3.5-5.1); SODIUM 141 mmol/L (136-145)
[2020-09-07 08:00] VITALS: BP 154/77
[2020-09-07 12:00] VITALS: BP 148/82
[2020-09-07 16:00] VITALS: BP 152/78
[2020-09-07 20:00] VITALS: BP 159/60
[2020-09-08] VITALS: BP 138/72
[2020-09-08 06:45] LABS: BASO % 0.5 % (0.0-1.0); EOS # 0.1 10*3/uL (0.0-0.4); EOS % 1.5 % (1.0-4.0); HEMATOCRIT 30.2 % (37.0-47.0); LYMPH # 1.4 10*3/uL (1.3-4.4); LYMPH % 19.2 % (27.0-41.0); MEAN CELL VOLUME 85.1 fl (81.0-99.0); MEAN CORPUSCULAR HGB 25.4 pg (27.0-31.0); MEAN CORPUSCULAR HGB CONC 29.8 g/dl (33.0-37.0); MEAN PLATELET VOLUME 8.3 fl (9.6-12.3); MONO # 0.4 10*3/uL (0.1-1.0); NEUT # 5.3 10*3/uL (2.3-7.9); NEUT % 72.3 % (47.0-73.0); PLATELET COUNT AUTOMATED 332 10*3/uL (130-400); RED BLOOD COUNT 3.55 10*6/uL (4.10-5.10); RED CELL DISTRI WIDTH 15.5 % (0-14.5); WHITE BLOOD COUNT 7.3 10*3/uL (4.8-10.8)
[2020-09-08 07:06] LABS: BUN 13 mg/dl (7-24); CHLORIDE 109 mmol/L (98-107); CREATININE 0.83 mg/dL (0.55-1.02); POTASSIUM 3.7 mmol/L (3.5-5.1); SODIUM 142 mmol/L (136-145)
[2020-09-08 08:00] VITALS: BP 135/72
[2020-09-08 12:00] VITALS: BP 152/72
[2020-09-08 16:00] VITALS: BP 170/65
[2020-09-08 20:00] VITALS: BP 155/70
[2020-09-09 08:19] VITALS: BP 127/65
[2020-09-09 11:31] VITALS: BP 147/57
[2020-09-09 15:33] VITALS: BP 144/57
[2020-09-09 20:00] VITALS: BP 160/68
[2020-09-10] VITALS (13 sets, daily range): BP systolic 117–177; BP diastolic 54–88
[2020-09-10 08:43] LABS: ACT PARTIAL THROMBO TIME 27.4 SECONDS (20.0-32.1); INTERNATIONAL NORM RATIO 1.2 (2.0-3.5)
[2020-09-11] VITALS: BP 147/61; BP 169/68
[2020-09-11 06:20] LABS: BASO # 0.1 10*3/uL (0.0-0.1); BASO % 0.9 % (0.0-1.0); EOS # 0.2 10*3/uL (0.0-0.4); EOS % 2.6 % (1.0-4.0); HEMATOCRIT 30.7 % (37.0-47.0); LYMPH # 1.5 10*3/uL (1.3-4.4); LYMPH % 24.8 % (27.0-41.0); MEAN CELL VOLUME 82.5 fl (81.0-99.0); MEAN CORPUSCULAR HGB 25.3 pg (27.0-31.0); MEAN CORPUSCULAR HGB CONC 30.6 g/dl (33.0-37.0); MEAN PLATELET VOLUME 8.4 fl (9.6-12.3); MONO # 0.4 10*3/uL (0.1-1.0); NEUT # 3.8 10*3/uL (2.3-7.9); NEUT % 64.2 % (47.0-73.0); PLATELET COUNT AUTOMATED 304 10*3/uL (130-400); RED BLOOD COUNT 3.72 10*6/uL (4.10-5.10); RED CELL DISTRI WIDTH 15.2 % (0-14.5); WHITE BLOOD COUNT 5.9 10*3/uL (4.8-10.8)
[2020-09-11 06:46] LABS: BUN 9 mg/dl (7-24); CHLORIDE 110 mmol/L (98-107); CREATININE 0.83 mg/dL (0.55-1.02); POTASSIUM 3.4 mmol/L (3.5-5.1); SODIUM 141 mmol/L (136-145)
[2020-09-11 08:00] VITALS: BP 161/71
[2020-09-11 12:00] VITALS: BP 152/77
[2020-09-11 16:00] VITALS: BP 149/83
[2020-09-11 20:00] VITALS: BP 164/69
[2020-09-12] VITALS: BP 157/67
[2020-09-12 06:49] LABS: BUN 7 mg/dl (7-24); CHLORIDE 106 mmol/L (98-107); CREATININE 0.69 mg/dL (0.55-1.02); POTASSIUM 3.4 mmol/L (3.5-5.1); SODIUM 141 mmol/L (136-145)
[2020-09-12 08:00] VITALS: BP 132/74
[2020-09-12 12:00] VITALS: BP 158/70
[2020-09-12 16:00] VITALS: BP 157/71
[2020-09-12 20:00] VITALS: BP 150/67
[2020-09-13] VITALS: BP 153/73
[2020-09-13 06:56] LABS: BUN 6 mg/dl (7-24); CHLORIDE 109 mmol/L (98-107); CREATININE 0.65 mg/dL (0.55-1.02); POTASSIUM 3.7 mmol/L (3.5-5.1); SODIUM 141 mmol/L (136-145)
[2020-09-13 08:00] VITALS: BP 152/68
[2020-09-13 12:00] VITALS: BP 176/71
[2020-09-13] MEDS ORDERED: LEXAPRO5 M1 PO ×2 (13:04)
[2020-09-13] MEDS ORDERED: AMBIEN5 MG PO (13:08)
[2020-09-13] MEDS ORDERED: ZYVOX600 MG/300 IV (13:13)
[2020-09-13] MEDS ORDERED: HYDROCODONE-AC1 EAC1 PO ×2 (13:32)
== END 2020-09-13 15:30 | disposition home or self-care (01) | DRG 391 ==
LOC: ED 11:40 → 5E 16:42 → EDHOLD 16:42 → 5E 20:05
PROVIDERS: Hospitalist; Internal Medicine; Physician Assistant; Radiology Diagnostic Radiology; ADMIT Internal Medicine; ATTEND Internal Medicine
PROC: 0W9G30Z Drainage of Peritoneal Cavity with Drainage Device, Percutaneous Approach (ICD-10-PCS; principal; 2020-09-10)
PROC: 02HV33Z Insertion of Infusion Device into Superior Vena Cava, Percutaneous Approach (ICD-10-PCS; 2020-09-11)
DX: K57.20 Diverticulitis of large intestine with perforation and abscess without bleeding (principal); E43 Unspecified severe protein-calorie malnutrition; Z68.41 Body mass index [BMI] 40.0-44.9, adult; K76.0 Fatty (change of) liver, not elsewhere classified; D64.9 Anemia, unspecified; E87.6 Hypokalemia; F17.210 Nicotine dependence, cigarettes, uncomplicated; I10 Essential (primary) hypertension; R79.82 Elevated C-reactive protein (CRP); R82.71 Bacteriuria; R00.1 Bradycardia, unspecified; R60.0 Localized edema; G47.00 Insomnia, unspecified; M19.90 Unspecified osteoarthritis, unspecified site; J45.909 Unspecified asthma, uncomplicated; F41.9 Anxiety disorder, unspecified; E11.65 Type 2 diabetes mellitus with hyperglycemia; R16.1 Splenomegaly, not elsewhere classified; E78.5 Hyperlipidemia, unspecified; Z71.6 Tobacco abuse counseling; Z87.440 Personal history of urinary (tract) infections; Z88.2 Allergy status to sulfonamides; Z90.49 Acquired absence of other specified parts of digestive tract; Z98.891 History of uterine scar from previous surgery; Z81.1 Family history of alcohol abuse and dependence; Z83.3 Family history of diabetes mellitus; Z82.3 Family history of stroke; Z84.1 Family history of disorders of kidney and ureter; Z82.49 Family history of ischemic heart disease and other diseases of the circulatory system; Z83.49 Family history of other endocrine, nutritional and metabolic diseases; Z83.438 Family history of other disorder of lipoprotein metabolism and other lipidemia; Z79.899 Other long term (current) drug therapy; Z79.82 Long term (current) use of aspirin; Z79.4 Long term (current) use of insulin

== ENCOUNTER 2020-09-17 08:55 | Inpatient (IN) | payer BC ==
[~2020-09-17] VITALS: Ht 152.4 cm; Wt 101.2 kg
[~2020-09-17 08:55] MED LIST changes: +AMBIEN5 MG PO; +HYDROCODONE-AC1 EAC1 PO; +ZYVOX600 MG/300 IV
[2020-09-17 09:11] VITALS: BP 180/77
[2020-09-17 09:34] LABS: BASO # 0.1 10*3/uL (0.0-0.1); BASO % 0.7 % (0.0-1.0); EOS # 0.2 10*3/uL (0.0-0.4); EOS % 1.7 % (1.0-4.0); HEMATOCRIT 38.6 % (37.0-47.0); LYMPH % 19.5 % (27.0-41.0); MEAN CELL VOLUME 80.8 fl (81.0-99.0); MEAN CORPUSCULAR HGB 24.7 pg (27.0-31.0); MEAN CORPUSCULAR HGB CONC 30.6 g/dl (33.0-37.0); MEAN PLATELET VOLUME 8.6 fl (9.6-12.3); MONO # 0.6 10*3/uL (0.1-1.0); MONO % 5.8 % (3.0-9.0); NEUT # 7.4 10*3/uL (2.3-7.9); NEUT % 71.7 % (47.0-73.0); PLATELET COUNT AUTOMATED 356 10*3/uL (130-400); RED BLOOD COUNT 4.78 10*6/uL (4.10-5.10); RED CELL DISTRI WIDTH 15.4 % (0-14.5); WHITE BLOOD COUNT 10.4 10*3/uL (4.8-10.8)
[2020-09-17 09:48] LABS: ACT PARTIAL THROMBO TIME 26.1 SECONDS (20.0-32.1); INTERNATIONAL NORM RATIO 1.1 (2.0-3.5)
[2020-09-17 09:52] LABS: ALBUMIN 3.2 gm/dl (3.1-4.5); ALKALINE PHOSPHATASE 107 U/L (45-117); BUN 6 mg/dl (7-24); CHLORIDE 104 mmol/L (98-107); CREATININE 0.91 mg/dL (0.55-1.02); SGOT/AST 7 IU/L (3-35); SGPT/ALT 11 U/L (12-78); SODIUM 138 mmol/L (136-145); TOTAL PROTEIN 7.4 gm/dL (6.4-8.2)
[2020-09-17 09:53] LABS: TROPONIN I < 0.015 ng/ml (<0.045)
[2020-09-17 10:10] VITALS: BP 186/75
[2020-09-17 10:39] VITALS: BP 186/75
[2020-09-17 12:22] VITALS: BP 174/78
[2020-09-17 13:42] VITALS: BP 150/70
[2020-09-17] MEDS ORDERED: LEXAPRO5 M1 PO (15:06)
[2020-09-17] MEDS ORDERED: Lopressor25 MG PO (15:08)
[2020-09-17] MEDS ORDERED: HYDR25T PO (15:10)
[2020-09-17] MEDS ORDERED: COZAAR25 M1 PO (15:11)
[2020-09-17] MEDS ORDERED: NOVOLOG MI100 UNIT/2 SQ (15:12)
[2020-09-17 15:31] VITALS: BP 169/82
[2020-09-17] MEDS ORDERED: VENTOLIN 02.5 MG/3 M INH (18:17)
[2020-09-17] MEDS ORDERED: ADULT LOW DOSE81 MG PO (18:19)
[2020-09-17] MEDS ORDERED: EC NAPROSYN,NA500 MG PO (18:20)
[2020-09-17] MEDS ORDERED: VICTOZA 2-0.6 MG/0.1 SQ (18:20)
[2020-09-17] MEDS ORDERED: ZOLPIDEM TART5 MG PO (18:21)
[2020-09-17] MEDS ORDERED: VITAMIN D350 MC2 PO (18:23)
[2020-09-18 05:06] VITALS: BP 165/833
[2020-09-18 06:14] LABS: CHLORIDE 103 mmol/L (98-107); CHOLESTEROL 113 mg/dL (<200); CREATININE 1.05 mg/dL (0.55-1.02); POTASSIUM 3.6 mmol/L (3.5-5.1); SGOT/AST 8 IU/L (3-35); SGPT/ALT 12 U/L (12-78); SODIUM 138 mmol/L (136-145)
[2020-09-18 06:23] LABS: ALBUMIN 3.1 gm/dl (3.1-4.5); ALKALINE PHOSPHATASE 94 U/L (45-117); BUN 7 mg/dl (7-24); LDL CHOLESTEROL 42 mg/dL (9-159); TOTAL PROTEIN 7.1 gm/dL (6.4-8.2); TRIGLYCERIDES 230 mg/dl (<150)
[2020-09-18 06:29] LABS: BASO # 0.1 10*3/uL (0.0-0.1); BASO % 0.7 % (0.0-1.0); EOS # 0.1 10*3/uL (0.0-0.4); EOS % 1.6 % (1.0-4.0); HEMATOCRIT 36.3 % (37.0-47.0); LYMPH # 1.9 10*3/uL (1.3-4.4); LYMPH % 21.1 % (27.0-41.0); MEAN CELL VOLUME 80.5 fl (81.0-99.0); MEAN CORPUSCULAR HGB 25.1 pg (27.0-31.0); MEAN CORPUSCULAR HGB CONC 31.1 g/dl (33.0-37.0); MEAN PLATELET VOLUME 8.8 fl (9.6-12.3); MONO # 0.6 10*3/uL (0.1-1.0); MONO % 6.5 % (3.0-9.0); NEUT # 6.2 10*3/uL (2.3-7.9); NEUT % 69.7 % (47.0-73.0); PLATELET COUNT AUTOMATED 314 10*3/uL (130-400); RED BLOOD COUNT 4.51 10*6/uL (4.10-5.10); RED CELL DISTRI WIDTH 15.3 % (0-14.5); WHITE BLOOD COUNT 8.9 10*3/uL (4.8-10.8)
[2020-09-18 06:46] LABS: ACT PARTIAL THROMBO TIME 25.6 SECONDS (20.0-32.1); INTERNATIONAL NORM RATIO 1.1 (2.0-3.5)
[2020-09-18 07:55] VITALS: BP 140/45
[2020-09-18 11:40] VITALS: BP 159/85
== END 2020-09-18 20:24 | disposition home health service (06) | DRG 206 ==
LOC: ED 08:55 → EDHOLD 10:40
PROVIDERS: Emergency Medicine; Family Medicine; ADMIT Internal Medicine; ATTEND Internal Medicine
PROC: 4A02XM4 Measurement of Cardiac Total Activity, External Approach (ICD-10-PCS; principal; 2020-09-18)
PROC: 3E073KZ Introduction of Other Diagnostic Substance into Coronary Artery, Percutaneous Approach (ICD-10-PCS; 2020-09-18)
DX: M94.0 Chondrocostal junction syndrome [Tietze] (principal); E44.0 Moderate protein-calorie malnutrition; Z68.41 Body mass index [BMI] 40.0-44.9, adult; J45.909 Unspecified asthma, uncomplicated; D50.9 Iron deficiency anemia, unspecified; K57.90 Diverticulosis of intestine, part unspecified, without perforation or abscess without bleeding; F17.210 Nicotine dependence, cigarettes, uncomplicated; R79.89 Other specified abnormal findings of blood chemistry; E11.65 Type 2 diabetes mellitus with hyperglycemia; Z98.891 History of uterine scar from previous surgery; M19.90 Unspecified osteoarthritis, unspecified site; M79.604 Pain in right leg; I25.10 Atherosclerotic heart disease of native coronary artery without angina pectoris; E66.01 Morbid (severe) obesity due to excess calories; I65.29 Occlusion and stenosis of unspecified carotid artery; E78.5 Hyperlipidemia, unspecified; I11.0 Hypertensive heart disease with heart failure; I50.9 Heart failure, unspecified; I25.2 Old myocardial infarction; Z88.2 Allergy status to sulfonamides; Z90.49 Acquired absence of other specified parts of digestive tract; Z81.1 Family history of alcohol abuse and dependence; Z82.3 Family history of stroke; Z83.3 Family history of diabetes mellitus; Z84.1 Family history of disorders of kidney and ureter; Z82.49 Family history of ischemic heart disease and other diseases of the circulatory system; Z83.49 Family history of other endocrine, nutritional and metabolic diseases; Z83.438 Family history of other disorder of lipoprotein metabolism and other lipidemia; Z79.899 Other long term (current) drug therapy; Z79.82 Long term (current) use of aspirin; Z71.6 Tobacco abuse counseling

== ENCOUNTER → 2020-10-01 | Outpatient (CLI) | payer BC ==
[~2020-10-01] MED LIST changes: +ADULT LOW DOSE81 MG PO; +COLACE100 MG PO; +EC NAPROSYN,NA500 MG PO; +HYDR25T PO; +Lopressor25 MG PO; +NOVOLOG MIX 70/33 ML SC; +Percocet 325 MG1 TAB PO; +VICTOZA 2-0.6 MG/0.1 SQ; +VITAMIN D350 MC2 PO; +ZOFRAN4 MG PO; +ZOLPIDEM TART5 MG PO
== END | disposition home or self-care (01) ==
LOC: CT 08:55
PROVIDERS: ATTEND Surgery
DX: N30.80 Other cystitis without hematuria (principal); K63.0 Abscess of intestine; Z90.49 Acquired absence of other specified parts of digestive tract; Z96.0 Presence of urogenital implants

== ENCOUNTER → 2020-11-20 | Outpatient (CLI) | payer BC ==
[~2020-11-20] MED LIST changes: +HYDROCHLOROTH12.5 M2 PO; +LEXAPRO10 MG PO
== END | disposition home or self-care (01) ==
LOC: CT 13:00
PROVIDERS: ATTEND Surgery
DX: K57.92 Diverticulitis of intestine, part unspecified, without perforation or abscess without bleeding (principal); K66.8 Other specified disorders of peritoneum; I70.0 Atherosclerosis of aorta; Z90.49 Acquired absence of other specified parts of digestive tract

== ENCOUNTER → 2020-12-18 | Outpatient (CLI) | payer BC | END | disposition home or self-care (01) | LOC: CT 09:00 | PROVIDERS: ATTEND Surgery | DX: K76.0 Fatty (change of) liver, not elsewhere classified (principal); K57.92 Diverticulitis of intestine, part unspecified, without perforation or abscess without bleeding; Z97.5 Presence of (intrauterine) contraceptive device; Z98.890 Other specified postprocedural states ==

== ENCOUNTER 2021-01-09 10:45 | Inpatient (IN) | payer BC ==
[~2021-01-09] VITALS: Ht 152.4 cm; Wt 92.9 kg
[~2021-01-09 10:45] MED LIST changes: -HYDROCHLOROTH12.5 M2 PO; -LEXAPRO10 MG PO
[2021-01-09 11:22] VITALS: BP 144/73
[2021-01-09 11:41] VITALS: BP 144/73
[2021-01-09 11:50] LABS: BASO # 0.1 10*3/uL (0.0-0.1); BASO % 0.7 % (0.0-1.0); EOS # 0.1 10*3/uL (0.0-0.4); EOS % 1.5 % (1.0-4.0); HEMATOCRIT 38.5 % (37.0-47.0); LYMPH # 1.6 10*3/uL (1.3-4.4); LYMPH % 20.1 % (27.0-41.0); MEAN CORPUSCULAR HGB 26.2 pg (27.0-31.0); MEAN CORPUSCULAR HGB CONC 32.7 g/dl (33.0-37.0); MEAN PLATELET VOLUME 9.5 fl (9.6-12.3); MONO # 0.4 10*3/uL (0.1-1.0); MONO % 4.8 % (3.0-9.0); NEUT # 5.9 10*3/uL (2.3-7.9); NEUT % 72.5 % (47.0-73.0); PLATELET COUNT AUTOMATED 265 10*3/uL (130-400); RED BLOOD COUNT 4.81 10*6/uL (4.10-5.10); RED CELL DISTRI WIDTH 15.7 % (0-14.5); WHITE BLOOD COUNT 8.1 10*3/uL (4.8-10.8)
[2021-01-09] MEDS ORDERED: LEXAPRO10 MG PO (11:58)
[2021-01-09] MEDS ORDERED: HYDROCHLOROTH12.5 M2 PO (11:59)
[2021-01-09 16:00] VITALS: BP 145/66
[2021-01-09 17:41] LABS: ALBUMIN 3.2 gm/dl (3.1-4.5); ALKALINE PHOSPHATASE 86 U/L (45-117); BUN 7 mg/dl (7-24); CHLORIDE 103 mmol/L (98-107); CREATININE 0.64 mg/dL (0.55-1.02); POTASSIUM 3.3 mmol/L (3.5-5.1); SGOT/AST 13 IU/L (3-35); SGPT/ALT 13 U/L (12-78); SODIUM 139 mmol/L (136-145)
[2021-01-10] VITALS: BP 133/66
[2021-01-10 06:41] LABS: ALBUMIN 2.8 gm/dl (3.1-4.5); ALKALINE PHOSPHATASE 78 U/L (45-117); BUN 8 mg/dl (7-24); CHLORIDE 105 mmol/L (98-107); CREATININE 0.52 mg/dL (0.55-1.02); POTASSIUM 3.5 mmol/L (3.5-5.1); SGOT/AST 5 IU/L (3-35); SGPT/ALT 13 U/L (12-78); SODIUM 140 mmol/L (136-145); TOTAL PROTEIN 6.5 gm/dL (6.4-8.2)
[2021-01-10 07:04] LABS: ACT PARTIAL THROMBO TIME 25.8 SECONDS (20.0-32.1)
[2021-01-10 08:00] VITALS: BP 147/73
[2021-01-10 16:00] VITALS: BP 110/67
[2021-01-10 20:00] VITALS: BP 144/60
[2021-01-11] VITALS: BP 119/60
[2021-01-11 06:38] LABS: BASO % 0.7 % (0.0-1.0); EOS # 0.1 10*3/uL (0.0-0.4); EOS % 1.5 % (1.0-4.0); HEMATOCRIT 36.1 % (37.0-47.0); LYMPH # 1.7 10*3/uL (1.3-4.4); LYMPH % 29.6 % (27.0-41.0); MEAN CELL VOLUME 80.9 fl (81.0-99.0); MEAN CORPUSCULAR HGB 26.5 pg (27.0-31.0); MEAN CORPUSCULAR HGB CONC 32.7 g/dl (33.0-37.0); MEAN PLATELET VOLUME 9.5 fl (9.6-12.3); MONO # 0.4 10*3/uL (0.1-1.0); MONO % 6.7 % (3.0-9.0); NEUT # 3.6 10*3/uL (2.3-7.9); NEUT % 61.2 % (47.0-73.0); PLATELET COUNT AUTOMATED 264 10*3/uL (130-400); RED BLOOD COUNT 4.46 10*6/uL (4.10-5.10); RED CELL DISTRI WIDTH 15.5 % (0-14.5); WHITE BLOOD COUNT 5.8 10*3/uL (4.8-10.8)
[2021-01-11 06:58] LABS: BUN 7 mg/dl (7-24); CHLORIDE 105 mmol/L (98-107); CREATININE 0.63 mg/dL (0.55-1.02); POTASSIUM 4.1 mmol/L (3.5-5.1); SODIUM 140 mmol/L (136-145)
[2021-01-11 08:00] VITALS: BP 148/76
[2021-01-11] MEDS ORDERED: FLAGYL500 MG PO (11:54)
[2021-01-11] MEDS ORDERED: CIPRO500 MG PO (11:54)
[2021-01-11 12:00] VITALS: BP 152/59
== END 2021-01-11 15:27 | disposition home health service (06) | DRG 394 ==
LOC: 4E 10:45
PROVIDERS: Hospitalist; ADMIT Internal Medicine; ATTEND Internal Medicine
DX: K94.01 Colostomy hemorrhage (principal); Z68.41 Body mass index [BMI] 40.0-44.9, adult; E66.01 Morbid (severe) obesity due to excess calories; E11.9 Type 2 diabetes mellitus without complications; I10 Essential (primary) hypertension; E78.5 Hyperlipidemia, unspecified; F17.210 Nicotine dependence, cigarettes, uncomplicated; M19.90 Unspecified osteoarthritis, unspecified site; Y83.8 Other surgical procedures as the cause of abnormal reaction of the patient, or of later complication, without mention of misadventure at the time of the procedure; Y82.8 Other medical devices associated with adverse incidents; I25.2 Old myocardial infarction; Z71.6 Tobacco abuse counseling; Z90.49 Acquired absence of other specified parts of digestive tract; Z98.891 History of uterine scar from previous surgery; Z88.2 Allergy status to sulfonamides; Z79.51 Long term (current) use of inhaled steroids; Z79.899 Other long term (current) drug therapy; Z79.82 Long term (current) use of aspirin; Z71.3 Dietary counseling and surveillance

== ENCOUNTER 2021-02-03 19:12 | Emergency (ER) | payer BC ==
[~2021-02-03] VITALS: Ht 152.4 cm; Wt 92.1 kg
[~2021-02-03 19:12] MED LIST changes: +HYDROCHLOROTH12.5 M2 PO; +LEXAPRO10 MG PO
[2021-02-03 20:36] LABS: BASO # 0.1 10*3/uL (0.0-0.1); BASO % 0.6 % (0.0-1.0); EOS # 0.1 10*3/uL (0.0-0.4); EOS % 0.8 % (1.0-4.0); HEMATOCRIT 45.9 % (37.0-47.0); LYMPH # 1.6 10*3/uL (1.3-4.4); LYMPH % 15.8 % (27.0-41.0); MEAN CELL VOLUME 78.3 fl (81.0-99.0); MEAN CORPUSCULAR HGB 26.5 pg (27.0-31.0); MEAN CORPUSCULAR HGB CONC 33.8 g/dl (33.0-37.0); MEAN PLATELET VOLUME 9.9 fl (9.6-12.3); MONO # 0.8 10*3/uL (0.1-1.0); MONO % 7.6 % (3.0-9.0); NEUT # 7.5 10*3/uL (2.3-7.9); NEUT % 74.3 % (47.0-73.0); PLATELET COUNT AUTOMATED 399 10*3/uL (130-400); RED BLOOD COUNT 5.86 10*6/uL (4.10-5.10); WHITE BLOOD COUNT 10.1 10*3/uL (4.8-10.8)
[2021-02-03 20:52] LABS: ALBUMIN 3.7 gm/dl (3.1-4.5); ALKALINE PHOSPHATASE 97 U/L (45-117); BUN 21 mg/dl (7-24); CHLORIDE 93 mmol/L (98-107); CREATININE 0.99 mg/dL (0.55-1.02); POTASSIUM 3.5 mmol/L (3.5-5.1); SGOT/AST 21 IU/L (3-35); SGPT/ALT 10 U/L (12-78); SODIUM 131 mmol/L (136-145); TOTAL PROTEIN 8.7 gm/dL (6.4-8.2)
[2021-02-03] MEDS ORDERED: PHENERGAN25 M3 PO ×2 (21:15)
[2021-02-18] MEDS ORDERED: PANTOPRAZOLE SO40 MG PO (13:58)
[2021-02-18] MEDS ORDERED: Carafate1 GM PO (13:58)
[2021-02-18] MEDS ORDERED: AUGMENTIN 875-875 MG PO (13:58)
== END 2021-02-03 21:19 | disposition home or self-care (01) ==
LOC: ED 19:12
PROVIDERS: Internal Medicine
DX: E11.65 Type 2 diabetes mellitus with hyperglycemia (principal); E87.8 Other disorders of electrolyte and fluid balance, not elsewhere classified; R11.2 Nausea with vomiting, unspecified; F17.200 Nicotine dependence, unspecified, uncomplicated; Z88.2 Allergy status to sulfonamides; Z79.899 Other long term (current) drug therapy; Z79.2 Long term (current) use of antibiotics; Z79.82 Long term (current) use of aspirin; Z90.49 Acquired absence of other specified parts of digestive tract; Z98.890 Other specified postprocedural states

== ENCOUNTER 2021-02-14 18:36 | Emergency (ER) | payer BC ==
[~2021-02-14] VITALS: Ht 152.4 cm; Wt 88.9 kg
[~2021-02-14 18:36] MED LIST changes: +PHENERGAN25 M3 PO
[2021-02-18] MEDS ORDERED: PANTOPRAZOLE SO40 MG PO (13:58)
[2021-02-18] MEDS ORDERED: Carafate1 GM PO (13:58)
[2021-02-18] MEDS ORDERED: AUGMENTIN 875-875 MG PO (13:58)
== END 2021-02-14 23:28 | disposition left against medical advice (07) ==
LOC: ED 18:36
DX: R10.9 Unspecified abdominal pain (principal); R11.2 Nausea with vomiting, unspecified; Z53.21 Procedure and treatment not carried out due to patient leaving prior to being seen by health care provider

== ENCOUNTER → 2021-02-22 | Outpatient (CLI) | payer BC ==
[~2021-02-22] MED LIST changes: +AUGMENTIN 875-875 MG PO; +Carafate1 GM PO
[2021-02-22 14:49] LABS: BASO # 0.1 10*3/uL (0.0-0.1); BASO % 0.6 % (0.0-1.0); EOS # 0.2 10*3/uL (0.0-0.4); EOS % 1.6 % (1.0-4.0); HEMATOCRIT 38.5 % (37.0-47.0); LYMPH % 16.8 % (27.0-41.0); MEAN CELL VOLUME 82.1 fl (81.0-99.0); MEAN CORPUSCULAR HGB 26.4 pg (27.0-31.0); MEAN CORPUSCULAR HGB CONC 32.2 g/dl (33.0-37.0); MEAN PLATELET VOLUME 9.9 fl (9.6-12.3); MONO # 0.8 10*3/uL (0.1-1.0); MONO % 6.7 % (3.0-9.0); NEUT # 8.9 10*3/uL (2.3-7.9); NEUT % 73.8 % (47.0-73.0); PLATELET COUNT AUTOMATED 364 10*3/uL (130-400); RED BLOOD COUNT 4.69 10*6/uL (4.10-5.10); RED CELL DISTRI WIDTH 14.7 % (0-14.5); WHITE BLOOD COUNT 12.1 10*3/uL (4.8-10.8)
== END | disposition home or self-care (01) ==
LOC: LAB 14:25
PROVIDERS: ATTEND Student in an Organized Health Care Education/Training Program
DX: K25.9 Gastric ulcer, unspecified as acute or chronic, without hemorrhage or perforation (principal)

== ENCOUNTER → 2021-09-03 | Outpatient (CLI) | payer BC ==
[~2021-09-03] MED LIST changes: +ASPIRIN ADULT L81 M1 PO; +HYDROCODONE-AC1 EAC2 PO; +KLOR-CON M2020 ME1 PO; -LEXAPRO10 MG PO; +LEXAPRO20 MG PO; +MIRENA1 EAC3 IY; +NATURE'S BLEND F1 MG PO; +NOVOLOG MI100 UNIT/1 SQ; +ONDANSETRON HYDR4 M1 PO; +PERCOCET 7.5-31 EACH PO; +PROTONIX IV40 MG IV; +PROTONIX40 MG PO; +VIBRAMYCIN100 MG PO
== END | disposition home or self-care (01) ==
LOC: RESCLI 15:54
PROVIDERS: ATTEND Internal Medicine Nephrology
DX: K57.90 Diverticulosis of intestine, part unspecified, without perforation or abscess without bleeding (principal); E11.9 Type 2 diabetes mellitus without complications; I11.9 Hypertensive heart disease without heart failure; I25.10 Atherosclerotic heart disease of native coronary artery without angina pectoris; G25.81 Restless legs syndrome; E78.5 Hyperlipidemia, unspecified; K27.9 Peptic ulcer, site unspecified, unspecified as acute or chronic, without hemorrhage or perforation; E53.8 Deficiency of other specified B group vitamins; Z12.31 Encounter for screening mammogram for malignant neoplasm of breast; E87.6 Hypokalemia; Z13.9 Encounter for screening, unspecified; K21.9 Gastro-esophageal reflux disease without esophagitis; F41.9 Anxiety disorder, unspecified; J30.2 Other seasonal allergic rhinitis; Z30.9 Encounter for contraceptive management, unspecified; J45.909 Unspecified asthma, uncomplicated; G62.9 Polyneuropathy, unspecified; E55.9 Vitamin D deficiency, unspecified; Z79.899 Other long term (current) drug therapy

== ENCOUNTER → 2021-09-11 | Outpatient (CLI) | payer BC | END | disposition home or self-care (01) | LOC: MAMMO 07:30 | PROVIDERS: ATTEND Family Medicine | DX: Z12.31 Encounter for screening mammogram for malignant neoplasm of breast (principal); E11.9 Type 2 diabetes mellitus without complications; Z13.9 Encounter for screening, unspecified ==

== ENCOUNTER 2021-11-17 07:44 | Emergency (ER) | payer BC, OTHER ==
[~2021-11-17] VITALS: Ht 152.4 cm; Wt 90.7 kg
[2021-11-17 09:03] LABS: BILIRUBIN Negative (Negative); BLOOD 2+ (Negative); CLARITY Turbid (Clear); COLOR Dark Yellow (Yellow); GLUCOSE Trace (Negative); KETONE Trace (Negative); LEUKO ESTERASE 3+ (Negative); NITRITE Negative (Negative); SPECIFIC GRAVITY >= 1.030 (1.001-1.030)
[2021-11-17 09:16] LABS: WBC TNTC wbc/hpf (0-5)
[2021-11-17 09:17] LABS: BACTERIA 4+
[2021-11-17] MEDS ORDERED: DIFLUCAN150 MG PO (09:24)
[2021-11-17] MEDS ORDERED: CIPRO500 MG PO (09:24)
== END 2021-11-17 09:30 | disposition home or self-care (01) ==
LOC: ED 07:44
PROVIDERS: Internal Medicine
DX: N39.0 Urinary tract infection, site not specified (principal); Z88.2 Allergy status to sulfonamides; Z79.899 Other long term (current) drug therapy; Z98.890 Other specified postprocedural states; Z90.49 Acquired absence of other specified parts of digestive tract; F17.200 Nicotine dependence, unspecified, uncomplicated

== ENCOUNTER 2021-11-24 15:46 | Emergency (ER) | payer BC, OTHER ==
[~2021-11-24] VITALS: Ht 152.4 cm; Wt 90.7 kg
[~2021-11-24 15:46] MED LIST changes: +DIFLUCAN150 MG PO
[2021-11-24 16:54] LABS: BILIRUBIN Negative (Negative); BLOOD 2+ (Negative); CLARITY Turbid (Clear); COLOR Yellow (Yellow); GLUCOSE Negative (Negative); KETONE Negative (Negative); LEUKO ESTERASE 3+ (Negative); NITRITE Negative (Negative)
[2021-11-24 17:21] LABS: BASO # 0.1 10*3/uL (0.0-0.1); BASO % 0.5 % (0.0-1.0); EOS # 0.1 10*3/uL (0.0-0.4); EOS % 1.4 % (1.0-4.0); HEMATOCRIT 37.3 % (37.0-47.0); LYMPH # 1.5 10*3/uL (1.3-4.4); MEAN CELL VOLUME 83.6 fl (81.0-99.0); MEAN CORPUSCULAR HGB 27.6 pg (27.0-31.0); MEAN PLATELET VOLUME 9.2 fl (9.6-12.3); MONO # 0.7 10*3/uL (0.1-1.0); MONO % 6.9 % (3.0-9.0); NEUT # 7.4 10*3/uL (2.3-7.9); NEUT % 75.9 % (47.0-73.0); PLATELET COUNT AUTOMATED 387 10*3/uL (130-400); RED BLOOD COUNT 4.46 10*6/uL (4.10-5.10); RED CELL DISTRI WIDTH 14.3 % (0-14.5); WHITE BLOOD COUNT 9.8 10*3/uL (4.8-10.8)
[2021-11-24 17:54] LABS: ALKALINE PHOSPHATASE 85 U/L (45-117); BUN 10 mg/dl (7-24); CHLORIDE 102 mmol/L (98-107); CREATININE 0.88 mg/dL (0.55-1.02); LIPASE 87 U/L (73-393); POTASSIUM 3.3 mmol/L (3.5-5.1); SGOT/AST 6 IU/L (3-35); SGPT/ALT 11 U/L (12-78); SODIUM 135 mmol/L (136-145); TOTAL PROTEIN 6.9 gm/dL (6.4-8.2)
[2021-11-24 18:06] LABS: BACTERIA 3+; WBC TNTC wbc/hpf (0-5)
[2021-11-24] MEDS ORDERED: AMOX-CLAV 875-1 EACH PO (21:32)
[2021-11-24] MEDS ORDERED: HYDROCODONE-AC1 EAC1 PO (21:32)
== END 2021-11-24 21:53 | disposition home or self-care (01) ==
LOC: ED 15:46
PROVIDERS: Physician Assistant
DX: K60.4 Rectal fistula (principal); F17.200 Nicotine dependence, unspecified, uncomplicated; Z90.49 Acquired absence of other specified parts of digestive tract; Z98.890 Other specified postprocedural states; Z79.899 Other long term (current) drug therapy; Z88.2 Allergy status to sulfonamides

== ENCOUNTER → 2021-12-09 | Day surgery (SDC) | payer BC, OTHER ==
[~2021-12-09] VITALS: Ht 152.4 cm; Wt 92.5 kg
[~2021-12-09] MED LIST changes: +AMOX-CLAV 875-1 EACH PO
[2021-12-09 07:30] VITALS: BP 107/63
[2021-12-09 08:15] VITALS: BP 88/40
[2021-12-09 08:34] VITALS: BP 95/53
[2021-12-09 08:45] VITALS: BP 112/53
== END | disposition home or self-care (01) ==
LOC: SDC 12-06 14:45
PROVIDERS: ATTEND Surgery
DX: Z12.11 Encounter for screening for malignant neoplasm of colon (principal); K57.32 Diverticulitis of large intestine without perforation or abscess without bleeding; N32.1 Vesicointestinal fistula; J45.909 Unspecified asthma, uncomplicated; I10 Essential (primary) hypertension; E11.9 Type 2 diabetes mellitus without complications; I25.10 Atherosclerotic heart disease of native coronary artery without angina pectoris; E78.00 Pure hypercholesterolemia, unspecified; E66.01 Morbid (severe) obesity due to excess calories; M19.90 Unspecified osteoarthritis, unspecified site; G51.0 Bell's palsy; G25.81 Restless legs syndrome; Z79.899 Other long term (current) drug therapy

== ENCOUNTER 2021-12-13 21:19 | Inpatient (IN) | payer BC, OTHER ==
[~2021-12-13] VITALS: Ht 152.4 cm; Wt 90.9 kg
[2021-12-13 21:34] VITALS: BP 142/70
[2021-12-13 21:39] LABS: BASO # 0.1 10*3/uL (0.0-0.1); BASO % 0.5 % (0.0-1.0); EOS # 0.1 10*3/uL (0.0-0.4); LYMPH # 1.4 10*3/uL (1.3-4.4); LYMPH % 12.8 % (27.0-41.0); MEAN CELL VOLUME 81.8 fl (81.0-99.0); MEAN CORPUSCULAR HGB CONC 31.8 g/dl (33.0-37.0); MEAN PLATELET VOLUME 8.4 fl (9.6-12.3); MONO # 0.6 10*3/uL (0.1-1.0); NEUT # 8.7 10*3/uL (2.3-7.9); NEUT % 79.3 % (47.0-73.0); PLATELET COUNT AUTOMATED 478 10*3/uL (130-400); RED BLOOD COUNT 4.77 10*6/uL (4.10-5.10); RED CELL DISTRI WIDTH 14.6 % (0-14.5)
[2021-12-13 21:52] LABS: ACT PARTIAL THROMBO TIME 26.6 SECONDS (20.0-32.1); INTERNATIONAL NORM RATIO 1.1 (2.0-3.5)
[2021-12-13 21:55] LABS: ALKALINE PHOSPHATASE 94 U/L (45-117); BUN 11 mg/dl (7-24); CHLORIDE 103 mmol/L (98-107); POTASSIUM 3.5 mmol/L (3.5-5.1); SGOT/AST 6 IU/L (3-35); SGPT/ALT 12 U/L (12-78); SODIUM 141 mmol/L (136-145); TOTAL PROTEIN 7.5 gm/dL (6.4-8.2)
[2021-12-13 23:22] VITALS: BP 134/45
[2021-12-14 00:26] VITALS: BP 125/47
[2021-12-14] MEDS ORDERED: PERCOCET 10-321 EACH PO (00:43)
[2021-12-14] MEDS ORDERED: GABAPENTIN600 MG PO (00:43)
[2021-12-14] MEDS ORDERED: ATORVASTATIN CA80 M1 PO (00:43)
[2021-12-14] MEDS ORDERED: HYDROCHLOROTHIA25 M1 PO (00:44)
[2021-12-14] MEDS ORDERED: ESCITALOPRAM OXA5 MG PO (00:44)
[2021-12-14] MEDS ORDERED: ESCITALOPRAM OX20 MG PO (00:44)
[2021-12-14] MEDS ORDERED: GOOD NEIGHBOR L10 MG PO (00:44)
[2021-12-14] MEDS ORDERED: PANTOPRAZOLE SO40 MG PO (00:45)
[2021-12-14] MEDS ORDERED: POTASSIUM CHLO20 ME3 PO (00:45)
[2021-12-14] MEDS ORDERED: JANUVIA100 MG PO (00:45)
[2021-12-14] MEDS ORDERED: BUDESONIDE-FO10.2 G1 INH (00:46)
[2021-12-14] MEDS ORDERED: VENT7GM INH (00:46)
[2021-12-14 01:00] VITALS: BP 118/52
[2021-12-14 06:00] LABS: ALKALINE PHOSPHATASE 84 U/L (45-117); BUN 13 mg/dl (7-24); CHLORIDE 103 mmol/L (98-107); CREATININE 0.67 mg/dL (0.55-1.02); POTASSIUM 3.5 mmol/L (3.5-5.1); SGOT/AST 5 IU/L (3-35); SGPT/ALT 10 U/L (12-78); SODIUM 139 mmol/L (136-145); TOTAL PROTEIN 6.8 gm/dL (6.4-8.2)
[2021-12-14 06:05] LABS: BILIRUBIN Negative (Negative); BLOOD Trace-Lysed (Negative); CLARITY Cloudy (Clear); COLOR Yellow (Yellow); GLUCOSE Negative (Negative); KETONE Trace (Negative); LEUKO ESTERASE 3+ (Negative); NITRITE Positive (Negative); PH 6.5 (4.5-8.0); SPECIFIC GRAVITY 1.025 (1.001-1.030)
[2021-12-14 06:06] LABS: BASO # 0.1 10*3/uL (0.0-0.1); BASO % 0.7 % (0.0-1.0); EOS # 0.1 10*3/uL (0.0-0.4); HEMATOCRIT 36.1 % (37.0-47.0); LYMPH # 2.1 10*3/uL (1.3-4.4); LYMPH % 23.8 % (27.0-41.0); MEAN CELL VOLUME 81.9 fl (81.0-99.0); MEAN CORPUSCULAR HGB 26.3 pg (27.0-31.0); MEAN CORPUSCULAR HGB CONC 32.1 g/dl (33.0-37.0); MEAN PLATELET VOLUME 8.6 fl (9.6-12.3); MONO # 0.7 10*3/uL (0.1-1.0); MONO % 7.7 % (3.0-9.0); NEUT # 5.7 10*3/uL (2.3-7.9); NEUT % 65.4 % (47.0-73.0); PLATELET COUNT AUTOMATED 439 10*3/uL (130-400); RED BLOOD COUNT 4.41 10*6/uL (4.10-5.10); RED CELL DISTRI WIDTH 14.4 % (0-14.5); WHITE BLOOD COUNT 8.7 10*3/uL (4.8-10.8)
[2021-12-14 06:21] LABS: BACTERIA 4+; WBC 51-100 wbc/hpf (0-5)
[2021-12-14 08:00] VITALS: BP 123/59
[2021-12-14 12:00] VITALS: BP 96/51
[2021-12-14 16:00] VITALS: BP 110/62
== END 2021-12-14 16:54 | disposition home or self-care (01) | DRG 205 ==
LOC: ED 21:19 → EDHOLD 12-14 00:11 → 5E 12-14 00:36
PROVIDERS: Emergency Medicine; Internal Medicine; ADMIT Internal Medicine; ATTEND Internal Medicine
DX: M94.0 Chondrocostal junction syndrome [Tietze] (principal); E43 Unspecified severe protein-calorie malnutrition; N82.3 Fistula of vagina to large intestine; K50.913 Crohn's disease, unspecified, with fistula; K27.9 Peptic ulcer, site unspecified, unspecified as acute or chronic, without hemorrhage or perforation; M19.90 Unspecified osteoarthritis, unspecified site; E78.5 Hyperlipidemia, unspecified; D72.829 Elevated white blood cell count, unspecified; D64.9 Anemia, unspecified; D75.839 Thrombocytosis, unspecified; R82.71 Bacteriuria; F17.210 Nicotine dependence, cigarettes, uncomplicated; J45.909 Unspecified asthma, uncomplicated; I10 Essential (primary) hypertension; E11.65 Type 2 diabetes mellitus with hyperglycemia; M50.320 Other cervical disc degeneration, mid-cervical region, unspecified level; Z79.4 Long term (current) use of insulin; Z68.39 Body mass index [BMI] 39.0-39.9, adult; Z88.2 Allergy status to sulfonamides; Z93.3 Colostomy status; Z90.49 Acquired absence of other specified parts of digestive tract; Z98.891 History of uterine scar from previous surgery; Z83.3 Family history of diabetes mellitus; Z82.3 Family history of stroke; Z84.1 Family history of disorders of kidney and ureter; Z82.49 Family history of ischemic heart disease and other diseases of the circulatory system; Z84.89 Family history of other specified conditions; I25.2 Old myocardial infarction

== ENCOUNTER → 2022-02-25 | Outpatient (CLI) | payer BC, OTHER ==
[~2022-02-25] MED LIST changes: +ATORVASTATIN CA80 M1 PO; +DIAMODE2 MG PO; +ESCITALOPRAM OX10 MG PO; +ESCITALOPRAM OX20 MG PO; +ESCITALOPRAM OXA5 MG PO; +GABAPENTIN600 MG PO; +GOOD NEIGHBOR L10 MG PO; +HYDROXYZINE HCL25 MG PO; +METAMUCIL FIBE3.4 GM PO; +METAMUCIL660 GM PO; +PERCOCET 10-321 EACH PO; +PERCOCET 5-3251 EACH PO; +POTASSIUM CHLO20 ME3 PO; +Phenergan25 MG PO; +RAMELTEON8 MG PO; +VENT7GM INH
[2022-02-25 09:17] LABS: BUN 12 mg/dl (7-24); CHLORIDE 107 mmol/L (98-107); CREATININE 0.95 mg/dL (0.55-1.02); POTASSIUM 3.2 mmol/L (3.5-5.1); SODIUM 136 mmol/L (136-145)
== END ==
LOC: LAB 08:39
PROVIDERS: ATTEND Surgery
DX: K60.5 Anorectal fistula (principal)

== ENCOUNTER → 2022-03-05 | Outpatient (CLI) | payer BC, OTHER ==
[2022-03-05 12:06] LABS: BUN 10 mg/dl (7-24); CHLORIDE 109 mmol/L (98-107); SODIUM 138 mmol/L (136-145)
== END ==
LOC: LAB 11:17
PROVIDERS: ATTEND Internal Medicine
DX: E87.6 Hypokalemia (principal)

== ENCOUNTER → 2022-03-17 | Day surgery (SDC) | payer BC, OTHER ==
[~2022-03-17] VITALS: Ht 152.4 cm; Wt 80.7 kg
[2022-03-17 10:00] VITALS: BP 124/70
[2022-03-17 11:39] VITALS: BP 94/58
[2022-03-17 11:54] VITALS: BP 94/64
[2022-03-17 12:03] VITALS: BP 102/58
== END | disposition home or self-care (01) ==
LOC: SDC 03-13 12:30
PROVIDERS: ATTEND Surgery
DX: I87.2 Venous insufficiency (chronic) (peripheral) (principal); I10 Essential (primary) hypertension; E11.9 Type 2 diabetes mellitus without complications; J45.909 Unspecified asthma, uncomplicated; I25.10 Atherosclerotic heart disease of native coronary artery without angina pectoris; I25.2 Old myocardial infarction; E78.00 Pure hypercholesterolemia, unspecified; Z79.899 Other long term (current) drug therapy

== ENCOUNTER → 2022-03-21 | Outpatient (CLI) | payer BC, OTHER | END | disposition home or self-care (01) | LOC: LAB 08:11 | PROVIDERS: ATTEND Internal Medicine | DX: E87.6 Hypokalemia (principal) ==

== ENCOUNTER → 2022-04-11 | Outpatient (CLI) | payer BC, OTHER ==
[2022-04-11 11:22] LABS: CHLORIDE 107 mmol/L (98-107); POTASSIUM 3.3 mmol/L (3.4-5.1); SODIUM 135 mmol/L (136-145)
[2022-04-11 11:28] LABS: BUN 8 mg/dl (9-23); CREATININE 0.82 mg/dL (0.55-1.02)
== END | disposition home or self-care (01) ==
LOC: LAB 09:02
PROVIDERS: ATTEND Internal Medicine
DX: E87.6 Hypokalemia (principal); Z88.1 Allergy status to other antibiotic agents

== ENCOUNTER → 2022-08-13 | Outpatient (CLI) | payer BC, OTHER | END | disposition home or self-care (01) | LOC: RESCLI 08-12 01:34 | PROVIDERS: ATTEND Family Medicine | DX: I10 Essential (primary) hypertension (principal); E11.9 Type 2 diabetes mellitus without complications; E87.6 Hypokalemia; N95.9 Unspecified menopausal and perimenopausal disorder; Z30.9 Encounter for contraceptive management, unspecified; F41.9 Anxiety disorder, unspecified; K21.00 Gastro-esophageal reflux disease with esophagitis, without bleeding; G91.8 Other hydrocephalus; G62.9 Polyneuropathy, unspecified; E78.5 Hyperlipidemia, unspecified; E55.9 Vitamin D deficiency, unspecified; R09.81 Nasal congestion; F17.210 Nicotine dependence, cigarettes, uncomplicated; G47.00 Insomnia, unspecified; J45.909 Unspecified asthma, uncomplicated; Z98.890 Other specified postprocedural states; Z88.2 Allergy status to sulfonamides; Z82.49 Family history of ischemic heart disease and other diseases of the circulatory system; Z79.899 Other long term (current) drug therapy ==

== ENCOUNTER → 2022-09-11 | Day surgery (SDC) | payer BC, OTHER ==
[~2022-09-11] VITALS: Ht 152.4 cm; Wt 80.7 kg
[2022-09-11 10:17] VITALS: BP 115/67
[2022-09-11 11:35] VITALS: BP 117/57
[2022-09-11 11:50] VITALS: BP 125/57
[2022-09-11 12:05] VITALS: BP 135/54
== END | disposition home or self-care (01) ==
LOC: SDC 09-09 09:30
PROVIDERS: ATTEND Surgery
DX: Z45.2 Encounter for adjustment and management of vascular access device (principal); T82.898A Other specified complication of vascular prosthetic devices, implants and grafts, initial encounter; I10 Essential (primary) hypertension; E11.9 Type 2 diabetes mellitus without complications; J45.909 Unspecified asthma, uncomplicated; I25.10 Atherosclerotic heart disease of native coronary artery without angina pectoris; E78.00 Pure hypercholesterolemia, unspecified; I25.2 Old myocardial infarction; F17.210 Nicotine dependence, cigarettes, uncomplicated; F41.9 Anxiety disorder, unspecified; Z88.1 Allergy status to other antibiotic agents; Z90.49 Acquired absence of other specified parts of digestive tract; Z79.899 Other long term (current) drug therapy; Y82.8 Other medical devices associated with adverse incidents

== ENCOUNTER 2023-01-15 13:07 | Emergency (ER) | payer BC, OTHER ==
[~2023-01-15] VITALS: Ht 152.4 cm; Wt 97.5 kg
[2023-01-15 15:10] LABS: BASO # 0.1 10*3/uL (0.0-0.1); BASO % 0.7 % (0.0-1.0); EOS # 0.1 10*3/uL (0.0-0.4); EOS % 1.1 % (1.0-4.0); HEMATOCRIT 41.4 % (37.0-47.0); LYMPH % 19.2 % (27.0-41.0); MEAN CELL VOLUME 78.6 fl (81.0-99.0); MEAN CORPUSCULAR HGB 25.8 pg (27.0-31.0); MEAN CORPUSCULAR HGB CONC 32.9 g/dl (33.0-37.0); MONO # 0.7 10*3/uL (0.1-1.0); MONO % 6.9 % (3.0-9.0); NEUT # 7.3 10*3/uL (2.3-7.9); NEUT % 71.6 % (47.0-73.0); PLATELET COUNT AUTOMATED 336 10*3/uL (130-400); RED BLOOD COUNT 5.27 10*6/uL (4.10-5.10); RED CELL DISTRI WIDTH 15.3 % (0-14.5); WHITE BLOOD COUNT 10.2 10*3/uL (4.8-10.8)
[2023-01-15 15:35] LABS: ALKALINE PHOSPHATASE 149 U/L (46-116); BUN 11 mg/dl (9-23); CHLORIDE 102 mmol/L (98-107); TOTAL PROTEIN 7.4 gm/dL (6.0-8.0)
[2023-01-15 15:37] LABS: SGPT/ALT < 7 U/L (10-49)
[2023-01-15] MEDS ORDERED: VIBRAMYCIN100 MG PO (18:00)
[2023-01-15] MEDS ORDERED: CEPHALEXIN500 M1 PO (18:00)
== END 2023-01-15 18:16 | disposition home or self-care (01) ==
LOC: ED 13:07
PROVIDERS: Physician Assistant Medical
DX: L03.311 Cellulitis of abdominal wall (principal); J45.909 Unspecified asthma, uncomplicated; R11.0 Nausea; I10 Essential (primary) hypertension; E11.9 Type 2 diabetes mellitus without complications; I25.10 Atherosclerotic heart disease of native coronary artery without angina pectoris; I25.2 Old myocardial infarction; E78.00 Pure hypercholesterolemia, unspecified; Z88.2 Allergy status to sulfonamides; Z90.49 Acquired absence of other specified parts of digestive tract; Z98.890 Other specified postprocedural states; Z95.5 Presence of coronary angioplasty implant and graft; F17.200 Nicotine dependence, unspecified, uncomplicated

== ENCOUNTER 2023-04-27 08:53 | Emergency (ER) | payer BC, OTHER ==
[~2023-04-27] VITALS: Wt 93.0 kg
[~2023-04-27 08:53] MED LIST changes: +CEPHALEXIN500 M1 PO
[2023-04-27 09:40] LABS: BASO # 0.1 10*3/uL (0.0-0.1); EOS # 0.1 10*3/uL (0.0-0.4); EOS % 1.3 % (1.0-4.0); HEMATOCRIT 45.3 % (37.0-47.0); LYMPH # 2.1 10*3/uL (1.3-4.4); LYMPH % 19.8 % (27.0-41.0); MEAN CELL VOLUME 81.5 fl (81.0-99.0); MEAN CORPUSCULAR HGB 25.9 pg (27.0-31.0); MEAN CORPUSCULAR HGB CONC 31.8 g/dl (33.0-37.0); MEAN PLATELET VOLUME 9.5 fl (9.6-12.3); MONO # 0.5 10*3/uL (0.1-1.0); MONO % 5.2 % (3.0-9.0); NEUT # 7.6 10*3/uL (2.3-7.9); NEUT % 72.2 % (47.0-73.0); PLATELET COUNT AUTOMATED 283 10*3/uL (130-400); RED BLOOD COUNT 5.56 10*6/uL (4.10-5.10); RED CELL DISTRI WIDTH 15.5 % (0-14.5); WHITE BLOOD COUNT 10.5 10*3/uL (4.8-10.8)
[2023-04-27 10:00] LABS: ACT PARTIAL THROMBO TIME 25.8 SECONDS (20.0-32.1)
[2023-04-27 10:04] LABS: ALKALINE PHOSPHATASE 138 U/L (46-116); BUN 10 mg/dl (9-23); CHLORIDE 103 mmol/L (98-107); ETHYL ALCOHOL < 3.0 mg/dl (<3); LIPASE 36 U/L (12-53); SGPT/ALT 9 U/L (5-49); TOTAL PROTEIN 6.9 gm/dL (6.0-8.0)
[2023-04-27 10:05] LABS: B-hCG (QUALITATIVE) BORDERLINE (NEGATIVE)
[2023-04-27] MEDS ORDERED: ONDANSETRON4 MG SL (14:27)
== END 2023-04-27 14:35 | disposition home or self-care (01) ==
LOC: ED 08:53
PROVIDERS: Family Medicine
DX: R10.32 Left lower quadrant pain (principal); R11.2 Nausea with vomiting, unspecified; R51.9 Headache, unspecified; J45.909 Unspecified asthma, uncomplicated; I10 Essential (primary) hypertension; E11.9 Type 2 diabetes mellitus without complications; I25.10 Atherosclerotic heart disease of native coronary artery without angina pectoris; I25.2 Old myocardial infarction; E78.00 Pure hypercholesterolemia, unspecified; Z88.2 Allergy status to sulfonamides; Z90.49 Acquired absence of other specified parts of digestive tract; Z98.890 Other specified postprocedural states; Z95.5 Presence of coronary angioplasty implant and graft; F17.200 Nicotine dependence, unspecified, uncomplicated; Z79.899 Other long term (current) drug therapy

== ENCOUNTER → 2024-03-15 | Outpatient (CLI) | payer OTHER ==
[~2024-03-15] MED LIST changes: +ONDANSETRON4 MG SL
== END | disposition home or self-care (01) ==
LOC: WOUNDCARE 04:58
PROVIDERS: ATTEND Nurse Practitioner Family
DX: S70.221A Blister (nonthermal), right hip, initial encounter (principal); L03.115 Cellulitis of right lower limb; I10 Essential (primary) hypertension; E78.5 Hyperlipidemia, unspecified; I25.10 Atherosclerotic heart disease of native coronary artery without angina pectoris; E11.9 Type 2 diabetes mellitus without complications; J45.909 Unspecified asthma, uncomplicated; F17.290 Nicotine dependence, other tobacco product, uncomplicated; Z93.2 Ileostomy status; Z93.3 Colostomy status; X58.XXXA Exposure to other specified factors, initial encounter; Y93.89 Activity, other specified; Y92.89 Other specified places as the place of occurrence of the external cause; Y99.8 Other external cause status

== ENCOUNTER → 2024-03-21 | Outpatient (CLI) | payer OTHER | END | disposition home or self-care (01) | LOC: WOUNDCARE 08:20 | PROVIDERS: ATTEND Nurse Practitioner Family | DX: S70.22 Blister (nonthermal) of hip (principal); L02.415 Cutaneous abscess of right lower limb; L03.115 Cellulitis of right lower limb; E11.9 Type 2 diabetes mellitus without complications; I10 Essential (primary) hypertension; I25.10 Atherosclerotic heart disease of native coronary artery without angina pectoris; J45.909 Unspecified asthma, uncomplicated; E78.5 Hyperlipidemia, unspecified; F17.210 Nicotine dependence, cigarettes, uncomplicated; Z90.49 Acquired absence of other specified parts of digestive tract; Z93.3 Colostomy status; Z93.2 Ileostomy status; Z79.4 Long term (current) use of insulin; Z79.899 Other long term (current) drug therapy; X58.XXXD Exposure to other specified factors, subsequent encounter ==

== ENCOUNTER → 2024-03-29 | Outpatient (CLI) | payer OTHER | END | disposition home or self-care (01) | LOC: WOUNDCARE 01:49 | PROVIDERS: ATTEND Nurse Practitioner Family | DX: S70.22 Blister (nonthermal) of hip (principal); L02.415 Cutaneous abscess of right lower limb; L03.115 Cellulitis of right lower limb; E11.9 Type 2 diabetes mellitus without complications; I10 Essential (primary) hypertension; I25.10 Atherosclerotic heart disease of native coronary artery without angina pectoris; J45.909 Unspecified asthma, uncomplicated; E78.5 Hyperlipidemia, unspecified; F17.210 Nicotine dependence, cigarettes, uncomplicated; Z90.49 Acquired absence of other specified parts of digestive tract; Z93.3 Colostomy status; Z93.2 Ileostomy status; Z79.4 Long term (current) use of insulin; Z79.899 Other long term (current) drug therapy; X58.XXXD Exposure to other specified factors, subsequent encounter ==

== ENCOUNTER 2024-05-19 10:15 | Inpatient (IN) | payer OTHER ==
[~2024-05-19] VITALS: Ht 152.4 cm; Wt 103.5 kg
[2024-05-19 10:33] VITALS: BP 149/72
[2024-05-19] MEDS ORDERED: diphenhydrAMINE hydrochloride 50 MG/ML VIAL IV ONE (10:50)
[2024-05-19] MEDS ORDERED: SODIUM CHLORIDE 0.9% 1,000 ML IV ONE ×3 (10:50→15:30)
[2024-05-19] MEDS ORDERED: Metoclopramide Hydrochloride 10 MG/2 ML VIAL IV ONE (10:50)
[2024-05-19 11:07] LABS: BASO # 0.1 10*3/uL (0.0-0.1); BASO % 0.8 % (0.0-1.0); EOS # 0.1 10*3/uL (0.0-0.4); EOS % 0.9 % (1.0-4.0); HEMATOCRIT 49.1 % (37.0-47.0); MEAN CELL VOLUME 80.8 fl (81.0-99.0); MEAN CORPUSCULAR HGB 26.8 pg (27.0-31.0); MEAN CORPUSCULAR HGB CONC 33.2 g/dl (33.0-37.0); MEAN PLATELET VOLUME 10.1 fl (9.6-12.3); MONO # 0.5 10*3/uL (0.1-1.0); MONO % 5.4 % (3.0-9.0); NEUT # 6.6 10*3/uL (2.3-7.9); NEUT % 70.7 % (47.0-73.0); PLATELET COUNT AUTOMATED 255 10*3/uL (130-400); RED BLOOD COUNT 6.08 10*6/uL (4.10-5.10); RED CELL DISTRI WIDTH 13.5 % (0-14.5); WHITE BLOOD COUNT 9.3 10*3/uL (4.8-10.8)
[2024-05-19] MEDS ORDERED: INSULIN REGULAR, HUMAN 1 UNIT/0.01 ML SC ONE (11:10)
[2024-05-19 11:19] LABS: ACT PARTIAL THROMBO TIME 25.2 SECONDS (20.0-32.1)
[2024-05-19] MEDS ORDERED: CARAFATE1 G1 PO (11:45)
[2024-05-19] MEDS ORDERED: CLARITIN10 MG PO (11:46)
[2024-05-19] MEDS ORDERED: AMBIEN10 M1 PO (11:47)
[2024-05-19 12:19] LABS: ALKALINE PHOSPHATASE 172 U/L (46-116); BUN 9 mg/dl (9-23); CHLORIDE 99 mmol/L (98-107); CPK 53 U/L (34-171); ETHYL ALCOHOL < 3.0 mg/dl (<3); FREE T4 1.18 ng/dl (0.89-1.76); LIPASE 44 U/L (12-53); SGPT/ALT 19 U/L (5-49); TOTAL PROTEIN 7.4 gm/dL (6.0-8.0)
[2024-05-19 12:52] LABS: BILIRUBIN Negative (Negative); BLOOD Negative (Negative); CLARITY Clear (Clear); COLOR Yellow (Yellow); GLUCOSE 3+ (Negative); KETONE Negative (Negative); LEUKO ESTERASE Negative (Negative); NITRITE Negative (Negative); SPECIFIC GRAVITY >= 1.030 (1.001-1.030); UROBILINOGEN 0.2 E.U./dl (0.0-1.0)
[2024-05-19 13:04] LABS: BACTERIA TRACE; YEAST 2+
[2024-05-19 13:14] LABS: URINE AMPHETAMINES Negative (1000ng/ml); URINE BARBITURATES Negative (200ng/ml); URINE BENZODIAZEPINES Negative (200ng/ml); URINE CANNABINOIDS (THC) Positive (50ng/ml); URINE COCAINE Negative (300ng/ml); URINE METHADONE Negative (300ng/ml); URINE OPIATES Negative (300ng/ml); URINE PHENCYCLIDINE Negative (25ng/ml)
[2024-05-19] MEDS ORDERED: BISACODYL 5 MG TAB PO PRN (13:35)
[2024-05-19] MEDS ORDERED: ACETAMINOPHEN 325 MG TAB PO PRN (13:35)
[2024-05-19] MEDS ORDERED: BISACODYL 10 MG SUPP R PRN (13:35)
[2024-05-19] MEDS ORDERED: Ondansetron Hydrochloride 4 MG/2 ML VIAL IV PRN (13:35)
[2024-05-19] MEDS ORDERED: Magnesium Hydroxide 30 ML UDC PO PRN (13:35)
[2024-05-19] MEDS ORDERED: Acetaminophen/Hydrocodone 5 MG/325 MG TABLET PO PRN (13:35)
[2024-05-19] MEDS ORDERED: DEXTROSE 10 % IN WATER 250 ML IV PRN (13:45)
[2024-05-19] MEDS ORDERED: FLUCONAZOLE 150 MG TAB PO ONE (14:30)
[2024-05-19 14:45] VITALS: BP 139/62
[2024-05-19] MEDS ORDERED: ONDANSETRON HYDR4 MG PO (15:47)
[2024-05-19] MEDS ORDERED: LEXAPRO10 MG PO (15:49)
[2024-05-19] MEDS ORDERED: LEXAPRO20 MG PO (15:50)
[2024-05-19] MEDS ORDERED: FIBER LAX625 MG PO (15:58)
[2024-05-19] MEDS ORDERED: HUMULIN R500 UNIT/1 SQ (16:00)
[2024-05-19] MEDS ORDERED: INSULIN LISPRO 1 UNIT/0.01 ML SQ SCH (16:30)
[2024-05-19 20:00] VITALS: BP 143/52
[2024-05-19] MEDS ORDERED: ZOLPIDEM TARTRATE 10 MG TAB PO SCH (22:00)
[2024-05-19] MEDS ORDERED: ESCITALOPRAM OXALATE 10 MG TAB PO SCH (22:00)
[2024-05-19] MEDS ORDERED: ESCITALOPRAM OXALATE 20 MG TAB PO SCH (22:00)
[2024-05-19] MEDS ORDERED: hydrOXYzine pamoate 25 MG CAP PO SCH (22:00)
[2024-05-19] MEDS ORDERED: LORATADINE 10 MG TAB PO SCH (22:00)
[2024-05-19] MEDS ORDERED: ATORVASTATIN CALCIUM 40 MG TABLET PO SCH (22:00)
[2024-05-19] MEDS ORDERED: GABAPENTIN 600 MG TAB PO SCH (22:00)
[2024-05-20] VITALS: BP 153/64
[2024-05-20 05:30] LABS: ACT PARTIAL THROMBO TIME 24.5 SECONDS (20.0-32.1)
[2024-05-20 05:44] LABS: ALKALINE PHOSPHATASE 121 U/L (46-116); BUN 10 mg/dl (9-23); CHLORIDE 105 mmol/L (98-107); CHOLESTEROL 142 mg/dL (<200); FREE T4 1.28 ng/dl (0.89-1.76); LDL CHOLESTEROL 54 mg/dL (9-159); POTASSIUM 4.3 mmol/L (3.4-5.1); SGPT/ALT 20 U/L (5-49); TOTAL PROTEIN 6.2 gm/dL (6.0-8.0); TRIGLYCERIDES 305 mg/dl (<150)
[2024-05-20 05:45] LABS: VITAMIN D, 25-HYDROXY 37.8 ng/mL (30-100)
[2024-05-20 06:10] LABS: HEMATOCRIT 45.4 % (37.0-47.0); MEAN CELL VOLUME 82.1 fl (81.0-99.0); MEAN CORPUSCULAR HGB 26.2 pg (27.0-31.0); MEAN CORPUSCULAR HGB CONC 31.9 g/dl (33.0-37.0); MEAN PLATELET VOLUME 10.5 fl (9.6-12.3); PLATELET COUNT AUTOMATED 211 10*3/uL (130-400); RED BLOOD COUNT 5.53 10*6/uL (4.10-5.10); RED CELL DISTRI WIDTH 13.6 % (0-14.5); WHITE BLOOD COUNT 8.5 10*3/uL (4.8-10.8)
[2024-05-20 06:54] LABS: MANUAL DIFF REFLEX YES
[2024-05-20 06:57] LABS: ATYPICAL LYMPHS 2 % (0-0); BASOPHILS 1 % (0-1); TOTAL CELLS COUNTED 100 #CELLS
[2024-05-20 06:59] LABS: PLATELET SUFFICIENCY NORMAL (NORMAL)
[2024-05-20] MEDS ORDERED: Pantoprazole Sodium 40 MG TAB PO SCH (07:30)
[2024-05-20 08:00] VITALS: BP 148/55
[2024-05-20] MEDS ORDERED: SODIUM CHLORIDE 0.9% 1,000 ML IV SCH (09:00)
[2024-05-20] MEDS ORDERED: LOPRESSOR25 MG PO (09:28)
[2024-05-20] MEDS ORDERED: Enoxaparin Sodium 40 MG/0.4 ML SYR SC SCH (10:00)
== END 2024-05-20 11:15 | disposition home or self-care (01) | DRG 640 ==
LOC: ED 10:15 → 4E 12:50 → EDHOLD 12:50 → 4E 13:39 → EDHOLD 13:49 → 4E 14:02
PROVIDERS: Emergency Medicine; ADMIT Student in an Organized Health Care Education/Training Program; ATTEND Student in an Organized Health Care Education/Training Program
DX: E86.0 Dehydration (principal); N17.0 Acute kidney failure with tubular necrosis; N39.0 Urinary tract infection, site not specified; K50.90 Crohn's disease, unspecified, without complications; E87.20 Acidosis, unspecified; G90.9 Disorder of the autonomic nervous system, unspecified; E11.65 Type 2 diabetes mellitus with hyperglycemia; J45.909 Unspecified asthma, uncomplicated; E78.5 Hyperlipidemia, unspecified; D75.1 Secondary polycythemia; B37.31 Acute candidiasis of vulva and vagina; Z88.2 Allergy status to sulfonamides; Z90.49 Acquired absence of other specified parts of digestive tract; Z93.3 Colostomy status; Z98.891 History of uterine scar from previous surgery; Z81.1 Family history of alcohol abuse and dependence; Z84.1 Family history of disorders of kidney and ureter; Z82.3 Family history of stroke; Z83.3 Family history of diabetes mellitus; I25.2 Old myocardial infarction; Z79.4 Long term (current) use of insulin

== ENCOUNTER 2024-07-09 15:45 | Inpatient (IN) | payer OTHER ==
[~2024-07-09] VITALS: Ht 152.4 cm; Wt 104.3 kg
[~2024-07-09 15:45] MED LIST changes: +AMBIEN10 M1 PO; +CARAFATE1 G1 PO; +CLARITIN10 MG PO; +FIBER LAX625 MG PO; +HUMULIN R500 UNIT/1 SQ; +LEXAPRO10 MG PO; +ONDANSETRON HYDR4 MG PO
[2024-07-09] MEDS ORDERED: SODIUM CHLORIDE 0.9% 1,000 ML IV ONE (16:00)
[2024-07-09] MEDS ORDERED: MORPHINE Sulfate 2 MG/ML SYR IV ONE (16:00)
[2024-07-09] MEDS ORDERED: Ondansetron Hydrochloride 4 MG/2 ML VIAL IV ONE (16:00)
[2024-07-09 16:01] VITALS: BP 140/68
[2024-07-09 16:43] LABS: BASO # 0.1 10*3/uL (0.0-0.1); BASO % 0.9 % (0.0-1.0); EOS # 0.1 10*3/uL (0.0-0.4); EOS % 1.3 % (1.0-4.0); HEMATOCRIT 45.4 % (37.0-47.0); MEAN CELL VOLUME 80.4 fl (81.0-99.0); MEAN CORPUSCULAR HGB 26.5 pg (27.0-31.0); MEAN PLATELET VOLUME 9.3 fl (9.6-12.3); MONO # 0.5 10*3/uL (0.1-1.0); MONO % 4.5 % (3.0-9.0); NEUT # 7.9 10*3/uL (2.3-7.9); NEUT % 71.5 % (47.0-73.0); PLATELET COUNT AUTOMATED 274 10*3/uL (130-400); RED BLOOD COUNT 5.65 10*6/uL (4.10-5.10); RED CELL DISTRI WIDTH 14.3 % (0-14.5)
[2024-07-09 17:06] LABS: BUN 13 mg/dl (9-23); CHLORIDE 99 mmol/L (98-107); POTASSIUM 3.8 mmol/L (3.4-5.1)
[2024-07-09] MEDS ORDERED: ASPIRIN 325 MG TAB PO ONE (17:20)
[2024-07-09 18:00] VITALS: BP 135/69
[2024-07-09] MEDS ORDERED: Clopidogrel Hydrogen Sulfate 75 MG TAB PO ONE (18:10)
[2024-07-09] MEDS ORDERED: Acetaminophen/Hydrocodone 5 MG/325 MG TABLET PO PRN (18:20)
[2024-07-09] MEDS ORDERED: MORPHINE Sulfate 2 MG/ML SYR IV PRN (18:20)
[2024-07-09] MEDS ORDERED: Ondansetron Hydrochloride 4 MG/2 ML VIAL IV PRN (18:20)
[2024-07-09] MEDS ORDERED: BISACODYL 5 MG TAB PO PRN (18:20)
[2024-07-09] MEDS ORDERED: TEMAZEPAM 15 MG CAP PO PRN (18:20)
[2024-07-09] MEDS ORDERED: Magnesium Hydroxide 30 ML UDC PO PRN (18:20)
[2024-07-09] MEDS ORDERED: ACETAMINOPHEN 325 MG TAB PO PRN (18:20)
[2024-07-09 22:00] VITALS: BP 134/68
[2024-07-09 23:43] VITALS: BP 143/69
[2024-07-10] MEDS ORDERED: tiZANidine Hydrochloride 4 MG TAB PO SCH (00:35)
[2024-07-10] MEDS ORDERED: ZOLPIDEM TARTRATE 10 MG TAB PO SCH (00:35)
[2024-07-10] MEDS ORDERED: hydrOXYzine pamoate 25 MG CAP PO SCH (00:35)
[2024-07-10] MEDS ORDERED: ESCITALOPRAM OXALATE 20 MG TAB PO SCH (00:35)
[2024-07-10] MEDS ORDERED: ESCITALOPRAM OXALATE 10 MG TAB PO SCH ×2 (00:35→10:00)
[2024-07-10] MEDS ORDERED: [UNRECOGNIZED DRUG - OTHER] SC SCH (00:40)
[2024-07-10] MEDS ORDERED: Pantoprazole Sodium 40 MG TAB PO SCH ×2 (06:00→10:00)
[2024-07-10 07:03] LABS: BASO # 0.1 10*3/uL (0.0-0.1); BASO % 0.8 % (0.0-1.0); EOS # 0.1 10*3/uL (0.0-0.4); EOS % 1.3 % (1.0-4.0); HEMATOCRIT 45.7 % (37.0-47.0); MEAN CORPUSCULAR HGB CONC 31.7 g/dl (33.0-37.0); MEAN PLATELET VOLUME 9.1 fl (9.6-12.3); MONO # 0.6 10*3/uL (0.1-1.0); MONO % 5.9 % (3.0-9.0); NEUT # 7.2 10*3/uL (2.3-7.9); NEUT % 68.6 % (47.0-73.0); PLATELET COUNT AUTOMATED 269 10*3/uL (130-400); RED BLOOD COUNT 5.57 10*6/uL (4.10-5.10); RED CELL DISTRI WIDTH 14.5 % (0-14.5); WHITE BLOOD COUNT 10.5 10*3/uL (4.8-10.8)
[2024-07-10] MEDS ORDERED: BUDESONIDE 0.5 MG AMP NEB SCH (07:20)
[2024-07-10] MEDS ORDERED: Albuterol Sulfate 2.5 MG/3 ML VIAL NEB SCH ×2 (07:20→10:00)
[2024-07-10 07:29] LABS: BUN 14 mg/dl (9-23); CHLORIDE 103 mmol/L (98-107); CHOLESTEROL 183 mg/dL (<200); FREE T4 1.04 ng/dl (0.89-1.76); LDL CHOLESTEROL 87 mg/dL (9-159); POTASSIUM 4.1 mmol/L (3.4-5.1); TRIGLYCERIDES 339 mg/dl (<150)
[2024-07-10 08:00] VITALS: BP 152/59
[2024-07-10] MEDS ORDERED: Clopidogrel Hydrogen Sulfate 75 MG TAB PO SCH (10:00)
[2024-07-10] MEDS ORDERED: Enoxaparin Sodium 40 MG/0.4 ML SYR SC SCH (10:00)
[2024-07-10] MEDS ORDERED: Budesonide/Formoterol Fumarate 160/4.5 inhaler INH SCH (10:00)
[2024-07-10] MEDS ORDERED: CALCIUM POLYCARBOPHIL 625 MG TAB PO SCH (10:00)
[2024-07-10] MEDS ORDERED: FOLIC ACID 1 MG TAB PO SCH (10:00)
[2024-07-10] MEDS ORDERED: Metoprolol Tartrate 25 MG TAB PO SCH (10:00)
[2024-07-10] MEDS ORDERED: GABAPENTIN 600 MG TAB PO SCH (10:00)
[2024-07-10] MEDS ORDERED: ASPIRIN ENTERIC COATED 81 MG TAB PO SCH (10:00)
[2024-07-10] MEDS ORDERED: INSULIN PUMP (PT'S PUMP FROM HOME) SC SCH (10:10)
[2024-07-10] MEDS ORDERED: MAGNESIUM SULFATE 50 ML IV ONE (11:50)
[2024-07-10] MEDS ORDERED: Metoclopramide Hydrochloride 10 MG/2 ML VIAL IV ONE (11:50)
[2024-07-10] MEDS ORDERED: SODIUM CHLORIDE 0.9% 500 ML IV ONE (11:50)
[2024-07-10 12:00] VITALS: BP 150/65
[2024-07-10 16:00] VITALS: BP 137/54
[2024-07-10 20:00] VITALS: BP 146/65
[2024-07-10] MEDS ORDERED: LORATADINE 10 MG TAB PO SCH (22:00)
[2024-07-10] MEDS ORDERED: ATORVASTATIN CALCIUM 80 MG TAB PO SCH (22:00)
[2024-07-10] MEDS ORDERED: SUCRALFATE 1 GM TAB PO SCH (22:00)
[2024-07-11] VITALS: BP 145/50; BP 167/71
[2024-07-11 06:58] LABS: BUN 10 mg/dl (9-23); CHLORIDE 104 mmol/L (98-107); POTASSIUM 4.2 mmol/L (3.4-5.1)
[2024-07-11 07:01] LABS: BASO # 0.1 10*3/uL (0.0-0.1); BASO % 0.7 % (0.0-1.0); EOS # 0.1 10*3/uL (0.0-0.4); EOS % 1.5 % (1.0-4.0); HEMATOCRIT 44.8 % (37.0-47.0); MEAN CELL VOLUME 83.3 fl (81.0-99.0); MEAN CORPUSCULAR HGB 26.6 pg (27.0-31.0); MEAN CORPUSCULAR HGB CONC 31.9 g/dl (33.0-37.0); MEAN PLATELET VOLUME 9.4 fl (9.6-12.3); MONO # 0.6 10*3/uL (0.1-1.0); MONO % 6.3 % (3.0-9.0); NEUT # 5.9 10*3/uL (2.3-7.9); NEUT % 67.3 % (47.0-73.0); PLATELET COUNT AUTOMATED 247 10*3/uL (130-400); RED BLOOD COUNT 5.38 10*6/uL (4.10-5.10); RED CELL DISTRI WIDTH 14.5 % (0-14.5); WHITE BLOOD COUNT 8.7 10*3/uL (4.8-10.8)
[2024-07-11 08:00] VITALS: BP 155/70
[2024-07-11] MEDS ORDERED: ASPIRIN ADULT L81 M1 PO (11:41)
== END 2024-07-11 14:02 | disposition home or self-care (01) | DRG 206 ==
LOC: ED 15:45 → 4E 18:08 → EDHOLD 18:08 → 4E 23:24
PROVIDERS: Emergency Medicine; Student in an Organized Health Care Education/Training Program; ADMIT Internal Medicine; ATTEND Internal Medicine
DX: M94.0 Chondrocostal junction syndrome [Tietze] (principal); G45.9 Transient cerebral ischemic attack, unspecified; E11.65 Type 2 diabetes mellitus with hyperglycemia; I10 Essential (primary) hypertension; J45.909 Unspecified asthma, uncomplicated; E78.49 Other hyperlipidemia; K57.90 Diverticulosis of intestine, part unspecified, without perforation or abscess without bleeding; I25.2 Old myocardial infarction; Z87.11 Personal history of peptic ulcer disease; Z90.49 Acquired absence of other specified parts of digestive tract; Z81.1 Family history of alcohol abuse and dependence; Z82.49 Family history of ischemic heart disease and other diseases of the circulatory system; Z83.3 Family history of diabetes mellitus; Z82.3 Family history of stroke; Z79.899 Other long term (current) drug therapy

== ENCOUNTER → 2024-08-02 | Outpatient (CLI) | payer OTHER | END | disposition home or self-care (01) | LOC: WOUNDCARE 02:22 | PROVIDERS: ATTEND Nurse Practitioner Family | DX: L02.211 Cutaneous abscess of abdominal wall (principal); L53.9 Erythematous condition, unspecified; L03.90 Cellulitis, unspecified; S30.821A Blister (nonthermal) of abdominal wall, initial encounter; E78.5 Hyperlipidemia, unspecified; I10 Essential (primary) hypertension; I25.10 Atherosclerotic heart disease of native coronary artery without angina pectoris; J45.909 Unspecified asthma, uncomplicated; K57.92 Diverticulitis of intestine, part unspecified, without perforation or abscess without bleeding; F17.210 Nicotine dependence, cigarettes, uncomplicated; Z90.49 Acquired absence of other specified parts of digestive tract; Z86.14 Personal history of Methicillin resistant Staphylococcus aureus infection; Z98.890 Other specified postprocedural states; Z79.4 Long term (current) use of insulin; Z79.899 Other long term (current) drug therapy; X58.XXXA Exposure to other specified factors, initial encounter; Y93.89 Activity, other specified; Y92.89 Other specified places as the place of occurrence of the external cause; Y99.8 Other external cause status ==

== ENCOUNTER → 2024-08-08 | Outpatient (CLI) | payer OTHER | END | disposition home or self-care (01) | LOC: WOUNDCARE 01:45 | PROVIDERS: ATTEND Nurse Practitioner Family | DX: L02.211 Cutaneous abscess of abdominal wall (principal); L53.9 Erythematous condition, unspecified; L03.90 Cellulitis, unspecified; L73.2 Hidradenitis suppurativa; L02.214 Cutaneous abscess of groin; I10 Essential (primary) hypertension; I25.10 Atherosclerotic heart disease of native coronary artery without angina pectoris; E78.5 Hyperlipidemia, unspecified; E11.9 Type 2 diabetes mellitus without complications; J45.909 Unspecified asthma, uncomplicated; K57.92 Diverticulitis of intestine, part unspecified, without perforation or abscess without bleeding; F17.210 Nicotine dependence, cigarettes, uncomplicated; Z86.14 Personal history of Methicillin resistant Staphylococcus aureus infection; Z90.49 Acquired absence of other specified parts of digestive tract; Z98.890 Other specified postprocedural states; Z79.4 Long term (current) use of insulin; Z79.899 Other long term (current) drug therapy ==

== ENCOUNTER → 2024-08-15 | Outpatient (CLI) | payer OTHER | END | disposition home or self-care (01) | LOC: WOUNDCARE 03:28 | PROVIDERS: ATTEND Nurse Practitioner Family | DX: L02.211 Cutaneous abscess of abdominal wall (principal); L98.492 Non-pressure chronic ulcer of skin of other sites with fat layer exposed; L03.90 Cellulitis, unspecified; L53.9 Erythematous condition, unspecified; L73.2 Hidradenitis suppurativa; E11.9 Type 2 diabetes mellitus without complications; E78.5 Hyperlipidemia, unspecified; I10 Essential (primary) hypertension; I25.10 Atherosclerotic heart disease of native coronary artery without angina pectoris; J45.909 Unspecified asthma, uncomplicated; K57.92 Diverticulitis of intestine, part unspecified, without perforation or abscess without bleeding; F17.210 Nicotine dependence, cigarettes, uncomplicated; Z86.14 Personal history of Methicillin resistant Staphylococcus aureus infection; Z90.49 Acquired absence of other specified parts of digestive tract; Z98.890 Other specified postprocedural states; Z79.4 Long term (current) use of insulin; Z79.899 Other long term (current) drug therapy ==

== ENCOUNTER → 2024-08-22 | Outpatient (CLI) | payer OTHER | END | disposition home or self-care (01) | LOC: WOUNDCARE 03:13 | PROVIDERS: ATTEND Nurse Practitioner Family | DX: L02.211 Cutaneous abscess of abdominal wall (principal); L53.9 Erythematous condition, unspecified; L03.90 Cellulitis, unspecified; L73.2 Hidradenitis suppurativa; I10 Essential (primary) hypertension; I25.10 Atherosclerotic heart disease of native coronary artery without angina pectoris; E11.9 Type 2 diabetes mellitus without complications; E78.5 Hyperlipidemia, unspecified; J45.909 Unspecified asthma, uncomplicated; K57.92 Diverticulitis of intestine, part unspecified, without perforation or abscess without bleeding; F17.210 Nicotine dependence, cigarettes, uncomplicated; Z86.14 Personal history of Methicillin resistant Staphylococcus aureus infection; Z90.49 Acquired absence of other specified parts of digestive tract; Z98.890 Other specified postprocedural states; Z79.4 Long term (current) use of insulin; Z79.899 Other long term (current) drug therapy ==

== ENCOUNTER → 2024-08-29 | Outpatient (CLI) | payer OTHER | END | disposition home or self-care (01) | LOC: WOUNDCARE 02:17 | PROVIDERS: ATTEND Nurse Practitioner Family | DX: L02.211 Cutaneous abscess of abdominal wall (principal); L03.90 Cellulitis, unspecified; R60.9 Edema, unspecified; E11.9 Type 2 diabetes mellitus without complications; I10 Essential (primary) hypertension; J45.909 Unspecified asthma, uncomplicated; I25.10 Atherosclerotic heart disease of native coronary artery without angina pectoris; E78.5 Hyperlipidemia, unspecified; L53.9 Erythematous condition, unspecified; L73.2 Hidradenitis suppurativa; Z86.14 Personal history of Methicillin resistant Staphylococcus aureus infection; Z90.49 Acquired absence of other specified parts of digestive tract; Z98.890 Other specified postprocedural states; F17.210 Nicotine dependence, cigarettes, uncomplicated; Z79.4 Long term (current) use of insulin; Z79.899 Other long term (current) drug therapy ==

== ENCOUNTER 2025-02-02 14:31 | Emergency (ER) | payer BC, OTHER ==
[~2025-02-02] VITALS: Ht 152.4 cm; Wt 111.1 kg
[2025-02-02 15:09] LABS: BASO # 0.1 10*3/uL (0.0-0.1); BASO % 0.8 % (0.0-1.0); EOS # 0.1 10*3/uL (0.0-0.4); EOS % 1.5 % (1.0-4.0); MEAN CELL VOLUME 82.7 fl (81.0-99.0); MEAN CORPUSCULAR HGB 27.2 pg (27.0-31.0); MEAN PLATELET VOLUME 9.3 fl (9.6-12.3); MONO # 0.6 10*3/uL (0.1-1.0); MONO % 6.9 % (3.0-9.0); NEUT # 5.5 10*3/uL (2.3-7.9); NEUT % 64.1 % (47.0-73.0); NUCLEATED RED BLOOD CELL 0.0 % (0.0-0.0); NUCLEATED RED BLOOD CELL 0.0 10*3/uL (0.0-0.0); PLATELET COUNT AUTOMATED 251 10*3/uL (130-400); RED CELL DISTRI WIDTH 13.5 % (0-14.5)
[2025-02-02 15:31] LABS: BUN 9 mg/dl (9-23)
[2025-02-02 16:07] LABS: BILIRUBIN Negative (Negative); BLOOD Negative (Negative); CLARITY Clear (Clear); COLOR Yellow (Yellow); KETONE Negative (Negative); LEUKO ESTERASE Trace (Negative); NITRITE Negative (Negative); PH 6.0 (4.5-8.0); SPECIFIC GRAVITY >= 1.030 (1.001-1.030); UROBILINOGEN 1.0 E.U./dl (0.0-1.0)
[2025-02-02] MEDS ORDERED: Albuterol Sulf/Ipratropium 3 ML VIAL NEB ONE (16:10)
[2025-02-02 16:17] LABS: BACTERIA 1+; EPITHELIAL CELLS 21-30; YEAST 1+
[2025-02-02] MEDS ORDERED: INSULIN REGULAR, HUMAN 1 UNIT/0.01 ML IV ONE (16:20)
[2025-02-02] MEDS ORDERED: Water, Sterile 10 ML VIAL ONE (16:56)
[2025-02-02] MEDS ORDERED: Acetaminophen/Hydrocodone 5 MG/325 MG TABLET PO ONE (17:35)
[2025-02-02] MEDS ORDERED: CEPHALEXIN500 M1 PO (17:40)
[2025-02-02] MEDS ORDERED: HYDROCODONE-AC1 EAC1 PO (18:18)
[2025-02-02] MEDS ORDERED: CEPHALEXIN 500 MG CAP PO ONE (18:20)
== END 2025-02-02 18:26 | disposition home or self-care (01) ==
LOC: ED 14:31
PROVIDERS: Nurse Practitioner Family
DX: J44.1 Chronic obstructive pulmonary disease with (acute) exacerbation (principal); L03.115 Cellulitis of right lower limb; I10 Essential (primary) hypertension; E78.5 Hyperlipidemia, unspecified; E11.9 Type 2 diabetes mellitus without complications; I25.2 Old myocardial infarction; Z79.899 Other long term (current) drug therapy; Z79.82 Long term (current) use of aspirin; Z79.4 Long term (current) use of insulin; Z90.49 Acquired absence of other specified parts of digestive tract; Z98.890 Other specified postprocedural states; Z87.891 Personal history of nicotine dependence

== ENCOUNTER 2025-04-28 12:51 | Emergency (ER) | payer BC, OTHER ==
[~2025-04-28] VITALS: Ht 152.4 cm; Wt 106.6 kg
[2025-04-28] MEDS ORDERED: SODIUM CHLORIDE 0.9% 1,000 ML IV ONE (13:35)
[2025-04-28] MEDS ORDERED: IOHEXOL 300 MG/ML 100 ML VIAL IV ONE (13:40)
[2025-04-28 13:56] LABS: BASO # 0.1 10*3/uL (0.0-0.1); BASO % 0.7 % (0.0-1.0); EOS # 0.2 10*3/uL (0.0-0.4); EOS % 1.4 % (1.0-4.0); MEAN CELL VOLUME 81.6 fl (81.0-99.0); MEAN CORPUSCULAR HGB 27.5 pg (27.0-31.0); MEAN PLATELET VOLUME 9.8 fl (9.6-12.3); MONO # 0.8 10*3/uL (0.1-1.0); MONO % 6.3 % (3.0-9.0); NEUT # 8.1 10*3/uL (2.3-7.9); NEUT % 67.2 % (47.0-73.0); NUCLEATED RED BLOOD CELL 0.0 % (0.0-0.0); NUCLEATED RED BLOOD CELL 0.0 10*3/uL (0.0-0.0); PLATELET COUNT AUTOMATED 269 10*3/uL (130-400); RED CELL DISTRI WIDTH 13.3 % (0-14.5)
[2025-04-28 14:23] LABS: BUN 12 mg/dl (9-23); SGPT/ALT 46 U/L (5-49)
[2025-04-28 15:29] LABS: BILIRUBIN Negative (Negative); BLOOD Negative (Negative); CLARITY Clear (Clear); COLOR Yellow (Yellow); KETONE Negative (Negative); LEUKO ESTERASE 1+ (Negative); NITRITE Negative (Negative); PH 5.5 (4.5-8.0); SPECIFIC GRAVITY >= 1.030 (1.001-1.030); UROBILINOGEN 1.0 E.U./dl (0.0-1.0)
[2025-04-28 15:38] LABS: EPITHELIAL CELLS 41-50
[2025-04-28 15:39] LABS: WBC 51-100 wbc/hpf (0-5); YEAST TRACE
[2025-04-28] MEDS ORDERED: Ondansetron Hydrochloride 4 MG/2 ML VIAL IV ONE (15:45)
== END 2025-04-28 16:52 | disposition home or self-care (01) ==
LOC: ED 12:51
PROVIDERS: Nurse Practitioner Family
DX: R10.9 Unspecified abdominal pain (principal); J45.909 Unspecified asthma, uncomplicated; I10 Essential (primary) hypertension; E11.9 Type 2 diabetes mellitus without complications; I25.10 Atherosclerotic heart disease of native coronary artery without angina pectoris; I25.2 Old myocardial infarction; E78.00 Pure hypercholesterolemia, unspecified; Z98.890 Other specified postprocedural states; Z90.49 Acquired absence of other specified parts of digestive tract